=== PATIENT | female | born 1955 ===

== ENCOUNTER → 2017-02-03 | Outpatient (CLI) | payer OTHER ==
--- NOTE | 2017-02-03 07:32 | CT ---
EXAMINATION TYPE: CT abdomen pelvis wo con DATE OF EXAM: 02/03/2017 7:16 AM COMPARISON: NONE HISTORY: Pain and constipation TECHNIQUE: Helical acquisition through the abdomen and pelvis was obtained without intravenous contra st. The data was reformatted in axial, coronal and sagittal projections. CT DLP: 472 mGycm Automated exposure control for dose reduction was used. FINDINGS: Visualized portions of the lungs are clear. There is no pleural or pericardial fluid. The h eart is not enlarged. Within the abdomen, the liver, spleen and gallbladder appear normal. Both adrenal glands are normal. There is no evidence of hydronephrosis or nephrolithiasis. The pancreas is poorly visualized. There is moderate atheromatous calcification of the visualized arterial tree. The bladder is unremarkable. There is been a previous tubal ligation. Uterus appears unremarkable. There are surgical clips along the left iliac chain. I could not exclude a previous lymph node dissec tion. There are scattered diverticula in the sigmoid region without radiographic evidence of diverticulitis . The appendix is not visualized. Small bowel loops appear unremarkable. There is no free air and no free fluid. There is facet arthropathy and degenerative disc disease in t he lumbar spine. There is mild hypertrophic spondylosis in the dorsal line IMPRESSION: 1. STUDY LIMITED BY A POSSIBILITY OF FAT. 2. NO ACUTE INFLAMMATORY CHANGE. 3. POST SURGICAL CHANGE. 4. MILD DEGENERATIVE CHANGES WITHIN THE SPINE.
== END ==
LOC: RADCTMAIN 06:55
PROVIDERS: ATTEND Family Medicine
DX: R10.9 Unspecified abdominal pain (principal)
CPT/HCPCS: 74176

== ENCOUNTER → 2017-08-11 | Outpatient (CLI) | payer OTHER ==
[2017-08-11 13:08] LABS: Basophils # (A) 0.1 k/uL (0-0.2); Basophils % (A) 1 %; CH 33.7; Eosinophils # (A) 0.1 k/uL (0-0.7); Eosinophils % (A) 2 %; HCT 47.5 % (34.0-46.0); HDW 2.09; HGB 15.4 gm/dL (11.4-16.0); Luc # (Auto) 0.14; Luc % (Auto) 3; Lymphocytes # (A) 1.9 k/uL (1.0-4.8); Lymphocytes % (A) 36 %; MCH 33.4 pg (25.0-35.0); MCHC 32.5 g/dL (31.0-37.0); MCV 102.8 fL (80.0-100.0); Macrocytosis Slight; Mean Platelet Volume 8.1; Monocytes # (A) 0.4 k/uL (0-1.0); Monocytes % (A) 7 %; Neutrophils # (A) 2.8 k/uL (1.3-7.7); Neutrophils % (A) 52 %; RBC 4.63 m/uL (3.80-5.40); RDW 14.3 % (11.5-15.5); WBC 5.4 k/uL (3.8-10.6); WBC (Perox) 5.24
--- NOTE | 2017-08-11 13:11 | XR ---
EXAMINATION TYPE: XR chest 2V DATE OF EXAM: 08/11/2017 COMPARISON: NONE TECHNIQUE: PA and lateral views submitted. HISTORY: COPD FINDINGS: The lungs are clear and there is no pneumothorax, pleural effusion, or focal pneumonia. Hyperexpans ion noted. There is degenerative change of the spine. Biapical pleural thickening. Diffuse osteopenia . No overt failure. No focal pneumonia. Blunting of the costophrenic angles likely secondary to hyper expansion. IMPRESSION: 1. No acute process. Correlate for COPD.
[2017-08-11 13:19] LABS: Anion Gap 7 mmol/L; Blood Urea Nitrogen 11 mg/dL (7-17); Calcium 9.5 mg/dL (8.4-10.2); Carbon Dioxide 29 mmol/L (22-30); Chloride 103 mmol/L (98-107); Glucose 89 mg/dL (74-99); Non-African American GFR(MDRD) 55 (>60 ml/min/1.73 sqM); Potassium 4.7 mmol/L (3.5-5.1); Sodium 139 mmol/L (137-145)
[2017-08-11 13:21] LABS: INR 1.1 (<1.2); Partial Thromboplastin Time 26.1 sec (22.0-30.0); Prothrombin Time 11.5 sec (9.0-12.0)
== END | disposition home or self-care (01) ==
LOC: LABWHC1 12:15
PROVIDERS: ATTEND Orthopaedic Surgery
DX: J44.9 Chronic obstructive pulmonary disease, unspecified (principal); M79.643 Pain in unspecified hand; T84.039A Mechanical loosening of unspecified internal prosthetic joint, initial encounter; F17.200 Nicotine dependence, unspecified, uncomplicated; Z01.812 Encounter for preprocedural laboratory examination; Z51.81 Encounter for therapeutic drug level monitoring
CPT/HCPCS: 36415; 71020; 80048; 85025; 85610; 85730

== ENCOUNTER → 2018-06-12 | Outpatient (CLI) | payer OTHER ==
--- NOTE | 2018-06-14 13:17 | CT ---
EXAMINATION TYPE: CT abdomen pelvis w con DATE OF EXAM: 06/12/2018 COMPARISON: 02/03/2017 INDICATION: Upper Abdominal pain with nausea, vomiting and weight loss DLP: 358.1 mGycm, Automated exposure control for dose reduction was used. CONTRAST: 100 mL of Isovue 300. Study performed with Oral Contrast TECHNIQUE: Axial images were obtained from above the diaphragm to the pubic rami in the axial plane a t 5 mm thick sections. Reconstructed images are reviewed on the computer in the coronal plane. FINDINGS: Limited CT sections are obtained the lung bases. There is a 0.7 x 1.2 cm nodule on lung windows with in the right middle lobe adjacent to the major fissure and pleural margin anterior lateral right midd le lobe. Series 4 image 10.r 0.3 cm nodule may be adjacent. Follow-up is recommended.. CT ABDOMEN: Liver: There is a 1.2 cm hypodensity in the superior medial right lobe liver too small to classify as a cyst. This can be followed. There is an additional hypodensity in the posterior right lobe liver m idportion measuring 0.4 cm. At the posterior inferior right lobe liver there is a 0.6 cm hypodensity. These are too small to classify but may be hepatic cyst. Follow-up is recommended. These were not cl early identified 02/03/2017 although one was present. Spleen: Normal Pancreas: Normal Adrenal glands: The adrenal glands are normal. Gallbladder: Normal Kidneys: No masses are evident. No hydronephrosis is present. No cysts are present. Delayed images were obtained through the kidneys, which remain unremarkable. Aorta: Vascular calcification is within the aorta. Inferior vena cava: Normal. CT PELVIS: Loops of bowel within the abdomen and pelvis are normal. There are loops of bowel which are incom pletely distended or lack oral contrast limiting their evaluation. Appendix: Normal as visualized. Urinary bladder: Normal. Genitourinary structures: Uterus is unremarkable. Adnexal regions are clear. Osseous structures: No suspicious lytic or sclerotic lesions. IMPRESSIONS: 1. Interval development of a couple small nodules within the anterior peripheral right middle lobe a t the diaphragm. Consider CT chest for complete evaluation of the chest. 2. Hypodensities within the liver too small to classify. While one of these was present previously pr evious exam does not demonstrate all 3. Cyst could be considered although other etiologies remain wit hin the differential.
== END | disposition home or self-care (01) ==
LOC: RADCTMAIN 16:33
PROVIDERS: ATTEND Internal Medicine Gastroenterology
DX: J98.6 Disorders of diaphragm (principal); R10.13 Epigastric pain
CPT/HCPCS: 74177; Q9967

== ENCOUNTER → 2018-06-25 | Outpatient (CLI) | payer OTHER ==
--- NOTE | 2018-06-25 16:12 | CT ---
EXAMINATION TYPE: CT chest wo con DATE OF EXAM: 06/25/2018 COMPARISON: Chest x-ray 08/11/2017, CT abdomen pelvis 06/12/2018 HISTORY: Abnormal prior CT. Pulmonary nodule CT DLP: 115.5 mGycm. Automated Exposure Control for Dose Reduction was Utilized. TECHNIQUE: CT scan of the thorax is performed without IV contrast. FINDINGS: Lack of contrast could compromise sensitivity. There are coronary artery calcifications. LUNGS: The lungs are grossly clear, there is no concerning parenchymal mass or nodule identified. Th e nodule noted previously along the subpleural location in the right lower chest has resolved in the interval. There is a calcification present in the subpleural location on axial image 56 as on prior c ompatible with old granulomatous disease. There is a bandlike area of increased attenuation in the ri ght upper lobe anteriorly extending to the pleural surface which may represent some focal consolidati on, no definite air bronchograms. There is apical pleural scarring. Emphysematous changes are present within the lungs. There is no pleural effusion or pneumothorax seen. The tracheobronchial tree is p atent. MEDIASTINUM: Lack of IV contrast is noted to limit evaluation for mediastinal and especially hilar ad enopathy. There are no definitive greater than 1 cm hilar or mediastinal lymph nodes. No cardiomega ly or pericardial effusion is seen. OTHER: Posterior right 11th rib deformity could be postoperative and is stable. IMPRESSION: Findings were likely inflammatory, previously described nodule is no longer evident. Hubert elate for possible upper lobe pneumonia. Follow-up recommended. Noncontrast exam. Additional findings above.
== END | disposition home or self-care (01) ==
LOC: RADCTMAIN 15:02
PROVIDERS: ATTEND Family Medicine
DX: R91.1 Solitary pulmonary nodule (principal)
CPT/HCPCS: 71250

== ENCOUNTER 2018-07-01 08:48 | Day surgery (SDC) | payer OTHER ==
[2018-06-26 11:59] VITALS: BMI 19.0
[~2018-07-01 08:48] MED LIST: LACTATED RINGERS 1,000 ML IV SCH
[2018-07-01 09:37] VITALS: RESP 16; TEMP 97.6
[2018-07-01] MEDS ORDERED: LIDOCAINE 1% 20 ML VIAL (10MG/ML) FOR IV START INTRADERMA ONE (09:50)
[2018-07-01] MEDS ORDERED: LIDOCAINE 1% INJ 10MG/ML (20 ML MDV) ONE (10:05)
[2018-07-01] MEDS ORDERED: PROPOFOL 10 MG/ML 20 ML VIAL IV ONE (10:05)
--- NOTE | 2018-07-01 10:18 | P.PCN ---
Date of Procedure: 07/01/18 Procedure(s) Performed: BRIEF HISTORY: Patient is a 62-year-old, pleasant, white female, scheduled for an upper endoscopy as a part of evaluation of postprandial abdominal pain, early satiety and weight loss for the last few months duration.. PROCEDURE PERFORMED: Esophagogastroduodenoscopy with biopsy. PREOPERATIVE DIAGNOSIS: Epigastric pain, postprandial abdominal bloating and early satiety. IV sedation per anesthesia. PROCEDURE: After informed consent was obtained, the patient was brought into the endoscopy unit. IV sedation was administered by Anesthesia under continuous monitoring. Initially the Olympus GIF-140 video endoscope was inserted into the mouth. Esophagus intubated without any difficulty. It was gradually advanced into the stomach and duodenum and carefully examined. The bulb and the second part of the duodenum appeared normal. The abscesses were done from the duodenum to rule out celiac disease. The scope at this time was withdrawn to the stomach, adequately insufflated with air, and upon careful examination, mucosa of the antrum had patchy areas of erythema and biopsies were done from this area. The, body, cardia and the fundus appeared normal. The scope was then withdrawn into the esophagus. The GE junction was located at 39 cm from the incisors. The esophagus appeared normal. There were 2 superficial erosions at the GE junction consistent with LA grade B reflux esophagitis. The rest of esophagus appeared normal and the patient tolerated the procedure well. IMPRESSION: 1. Mild antral gastritis. 2. LA grade B reflux esophagitis. RECOMMENDATIONS: The findings of this examination were discussed with the patient as well as a family. She was advised to follow with the biopsy results. she will be seen in office in 2 weeks.
[2018-07-01 10:38] VITALS: BP 127/80; PULSE 67
== END 2018-07-01 11:12 | disposition home or self-care (01) ==
LOC: ORWHC2ENDO 08:48
PROVIDERS: ATTEND Internal Medicine Gastroenterology
DX: K21.0 Gastro-esophageal reflux disease with esophagitis (principal); K29.50 Unspecified chronic gastritis without bleeding; E78.5 Hyperlipidemia, unspecified; J44.9 Chronic obstructive pulmonary disease, unspecified; F17.210 Nicotine dependence, cigarettes, uncomplicated; M19.90 Unspecified osteoarthritis, unspecified site; F41.9 Anxiety disorder, unspecified; F32.9 Major depressive disorder, single episode, unspecified; Z79.891 Long term (current) use of opiate analgesic; Z79.899 Other long term (current) drug therapy
CPT/HCPCS: 88305; 43239; J2001; J2704

== ENCOUNTER → 2018-09-08 | Outpatient (CLI) | payer OTHER ==
--- NOTE | 2018-09-08 14:26 | XR ---
Right foot and right ankle HISTORY: Pain and bruising 3 views of the right foot and 3 views of the right ankle are submitted. No comparisons Osteoarthritic changes present at the metatarsophalangeal joint of the first digit, question prior os teotomy for hallux valgus deformity. Some distortion of the lateral aspect of the proximal interphala ngeal joint of the fifth digit may be posttraumatic or due to underlying arthropathy. There is no tyshawn dent fracture or dislocation of the foot or ankle. No significant soft tissue swelling present. IMPRESSION: Correlate for history of trauma, surgery. Foot MRI may be of benefit.
== END | disposition home or self-care (01) ==
LOC: RADXRMAIN 11:39
PROVIDERS: ATTEND Family Medicine
DX: M25.571 Pain in right ankle and joints of right foot (principal)

== ENCOUNTER 2019-01-10 00:34 | Emergency (ER) | payer OTHER ==
[2019-01-10] MEDS ORDERED: ONDANSETRON 4 MG/2 ML VIAL IVP STA (01:43)
[2019-01-10] MEDS ORDERED: SODIUM CHLORIDE 0.9% 1,000 ML IV STA (01:43)
--- NOTE | 2019-01-10 01:43 | ED ---
General Adult HPI - General Chief complaint: Nausea/Vomiting/Diarrhea Stated complaint: Flu Like Symptoms Time Seen by Provider: 01/10/19 01:16 Source: patient, EMS Mode of arrival: EMS Limitations: no limitations - History of Present Illness Initial comments: Dictation was produced using [employer] dictation software. please excuse any gr ammatical, word or spelling errors. Chief Complaint: 63-year-old female with past medical history of COPD, constipation presents with nausea vomiting diarrhea and generalized weakness. History of Present Illness: 63-year-old female with nausea vomiting diarrhea constipation. Patient states she has history of abdominal symptoms passed. She called ambulance because patient states that she felt so weak. Patient unable to keep anything down. Patient denies any abdominal pain except 3 diarrhea episodes. Patient denies any recent antibiotics or recent hospitalization. She does see a GI doctor. The ROS documented in this emergency department record has been reviewed and confirmed by me. Those systems with pertinent positive or negative responses have been documented in the HPI. All other systems are other negative and/or noncontributory. PHYSICAL EXAM: General Impression: Alert and oriented x3, not in acute distress HEENT: Normocephalic atraumatic, extra-ocular movements intact, pupils equal and reactive to light bilaterally, dry mucous membranes, decreased skin turgor Cardiovascular: Heart regular rate and rhythm, S1&S2 audible, no murmurs, rubs or gallops Chest: Lungs clear to auscultation bilaterally, no rhonchi, no wheeze, no rales Abdomen: Bowel sounds present, abdomen soft, non-tender, non-distended, no organomegaly Musculoskeletal: Pulses present and equal in all extremities, no peripheral edema Motor: Power 5/5 bilaterally, no focal deficits noted Neurological: CN II-XII grossly intact, no focal motor or sensory deficits noted Skin: Intact with no visualized rashes Psych: Normal affect and mood ED course: 63-year-old female presents with nausea, vomiting, diarrhea. Vital signs upon arrival are within acceptable limits. Patient is well-appearing at this time except she does appear to be mildly dehydrated. Laboratory evaluation obtained. CBC unremarkable. Metabolic panel is unremarkable. No elevated renal markers. Urinalysis is negative. No ketonuria. Patient given 1 L intravenous fluids. Patient ordered for a KUB x- ray showing nonobstructive bowel gas pattern. She given Zofran. Patient reevaluated states that she still unable to tolerate by mouth. She doesn't feel well at home. We will plan to have patient admitted to observation for intravenous fluids. - Related Data Home Medications Medication Instructions Recorded Confirmed Albuterol Inhaler [Ventolin Hfa 1 - 2 puff INHALATION Q4HR PRN 02/14/16 07/01/18 Inhaler] Atorvastatin [Lipitor] 10 mg PO HS 02/14/16 06/26/18 Diclofenac Sodium [Voltaren] 75 mg PO BID 02/14/16 06/26/18 Gabapentin 800 mg PO TID 02/14/16 07/01/18 HYDROcodone/APAP 5-325MG [[place] 1 tab PO Q8HR PRN 02/14/16 06/26/18 5-325] traZODone HCL [Desyrel] 100 mg PO HS 02/14/16 06/26/18 Dicyclomine [Bentyl] 10 mg PO TID 06/26/18 06/26/18 Vortioxetine Hydrobromide 20 mg PO DAILY 06/26/18 06/26/18 [Trintellix] Allergies Allergy/AdvReac Type Severity Reaction Status Date / Time No Known Allergies Allergy Verified 01/10/19 00:45 Review of Systems ROS Statement: Those systems with pertinent positive or pertinent negative responses have been documented in the HPI. ROS Other: All systems not noted in ROS Statement are negative. Past Medical History Past Medical History: COPD, Osteoarthritis (OA) Additional Past Medical History / Comment(s): OA in bilateral hands & osteoporosis in left hip History of Any Multi-Drug Resistant Organisms: None Reported Past Surgical History: Orthopedic Surgery Additional Past Surgical History / Comment(s): 4 sx on each foot; bilateral thumbs replaced; colonoscopy Past Anesthesia/Blood Transfusion Reactions: No Reported Reaction Past Psychological History: Anxiety, Depression Smoking Status: Former smoker Past Alcohol Use History: Rare Past Drug Use History: None Reported - Past Family History Mother Family Medical History: Diabetes Mellitus, Hypertension Additional Family Medical History / Comment(s): knee sx Father Family Medical History: Cancer Additional Family Medical History / Comment(s): CA: kidney, bone, "several cancers" General Exam Limitations: no limitations Course Vital Signs 01/10/19 01/10/19 00:38 04:58 Temperature 98.5 F O2 Sat by Pulse 96 Oximetry Medical Decision Making - Lab Data Result diagrams: 01/10/19 01:45 01/10/19 01:45 Lab Results 01/10/19 01/10/19 01/10/19 Range/Units 01:45 01:45 04:00 WBC 3.3 L (3.8-10.6) k/uL RBC 5.13 (3.80-5.40) m/uL Hgb 16.3 H (11.4-16.0) gm/dL Hct 48.9 H (34.0-46.0) % MCV 95.3 (80.0-100.0) fL MCH 31.9 (25.0-35.0) pg MCHC 33.4 (31.0-37.0) g/dL RDW 13.3 (11.5-15.5) % Plt Count 106 L (150-450) k/uL Neutrophils % 65 % Lymphocytes % 17 % Monocytes % 13 % Eosinophils % 1 % Basophils % 1 % Neutrophils # 2.2 (1.3-7.7) k/uL Lymphocytes # 0.6 L (1.0-4.8) k/uL Monocytes # 0.4 (0-1.0) k/uL Eosinophils # 0.0 (0-0.7) k/uL Basophils # 0.0 (0-0.2) k/uL Sodium 138 (137-145) mmol/L Potassium 3.7 (3.5-5.1) mmol/L Chloride 99 (98-107) mmol/L Carbon Dioxide 29 (22-30) mmol/L Anion Gap 10 mmol/L BUN 15 (7-17) mg/dL Creatinine 0.65 (0.52-1.04) mg/dL Est GFR (CKD-EPI)AfAm >90 (>60 ml/min/1.73 sqM) Est GFR (CKD-EPI)NonAf >90 (>60 ml/min/1.73 sqM) Glucose 107 H (74-99) mg/dL Calcium 9.5 (8.4-10.2) mg/dL Total Bilirubin 0.6 (0.2-1.3) mg/dL AST 78 H (14-36) U/L ALT 72 H (9-52) U/L Alkaline Phosphatase 68 (38-126) U/L Total Protein 7.0 (6.3-8.2) g/dL Albumin 4.2 (3.5-5.0) g/dL Lipase 136 (23-300) U/L Urine Color Yellow Urine Appearance Clear (Clear) Urine pH 6.0 (5.0-8.0) Ur Specific [place] 1.010 (1.001-1.035) Urine Protein Trace H (Negative) Urine Glucose (UA) Negative (Negative) Urine Ketones Negative (Negative) Urine Blood Negative (Negative) Urine Nitrite Negative (Negative) Urine Bilirubin Negative (Negative) Urine Urobilinogen <2.0 (<2.0) mg/dL Ur Leukocyte Esterase Negative (Negative) Disposition Clinical Impression: Dehydration Disposition: ADMITTED IP TO THIS [facility] Condition: Good Referrals: Ad Salinas DO [Primary Care Provider] - 1-2 days Decision Time: 05:06
[2019-01-10 03:04] LABS: ALT 72 U/L (9-52); AST 78 U/L (14-36); Albumin 4.2 g/dL (3.5-5.0); Alkaline Phosphatase 68 U/L (38-126); Anion Gap 10 mmol/L; Blood Urea Nitrogen 15 mg/dL (7-17); Calcium 9.5 mg/dL (8.4-10.2); Carbon Dioxide 29 mmol/L (22-30); Chloride 99 mmol/L (98-107); Glucose 107 mg/dL (74-99); Lipase 136 U/L (23-300); Potassium 3.7 mmol/L (3.5-5.1); Sodium 138 mmol/L (137-145); Total Bilirubin 0.6 mg/dL (0.2-1.3)
[2019-01-10 03:05] LABS: Basophils % (A) 1 %; Eosinophils % (A) 1 %; HCT 48.9 % (34.0-46.0); HGB 16.3 gm/dL (11.4-16.0); Lymphocytes # (A) 0.6 k/uL (1.0-4.8); Lymphocytes % (A) 17 %; MCH 31.9 pg (25.0-35.0); MCHC 33.4 g/dL (31.0-37.0); MCV 95.3 fL (80.0-100.0); Mean Platelet Volume 7.1; Monocytes # (A) 0.4 k/uL (0-1.0); Monocytes % (A) 13 %; Neutrophils # (A) 2.2 k/uL (1.3-7.7); Neutrophils % (A) 65 %; Platelet Count 106 k/uL (150-450); RBC 5.13 m/uL (3.80-5.40); RDW 13.3 % (11.5-15.5); WBC 3.3 k/uL (3.8-10.6)
--- NOTE | 2019-01-10 03:14 | XR ---
EXAM: XR Abdomen, 1 View CLINICAL HISTORY: pain TECHNIQUE: Frontal supine view of the abdomen/pelvis. COMPARISON: CT abdomen and pelvis from 06/12/18 FINDINGS: Gastrointestinal tract: Nonspecific bowel gas pattern. No dilation. Bones/joints: Suspect osteopenia. Soft tissues: Surgical clips in bilateral pelvis. IMPRESSION: Nonspecific bowel gas pattern
[2019-01-10 04:29] LABS: Appearance,Urine Clear (Clear); Bilirubin,Urine Negative (Negative); Blood,Urine Negative (Negative); Color,Urine Yellow; Glucose,Urine (UA) Negative (Negative); Ketones,Urine Negative (Negative); Leukocyte Esterase,Urine Negative (Negative); Nitrite,Urine Negative (Negative); Protein,Urine Trace (Negative); Urobilinogen,Urine <2.0 mg/dL (<2.0)
[2019-01-10] MEDS ORDERED: NALOXONE 0.4 MG/ML 1 ML VIAL IV PRN (04:41)
[2019-01-10] MEDS ORDERED: SODIUM CHLORIDE 0.9% 1,000 ML IV SCH (05:15)
[2019-01-10 05:18] VITALS: BP 142/86; PULSE 84; RESP 18; TEMP 98.2
--- NOTE | 2019-01-10 05:34 | ED ---
Medical Decision Making - Medical Decision Making Patient expressed desire to be discharge. She states she feels well. She's been tolerating by mouth at bedside. She had no episodes of diarrhea today. Believe this is reasonable disposition. She does have established primary care. Still to follow up PCP. - Lab Data Result diagrams: 01/10/19 01:45 01/10/19 01:45 Lab Results 01/10/19 01/10/19 01/10/19 Range/Units 01:45 01:45 04:00 WBC 3.3 L (3.8-10.6) k/uL RBC 5.13 (3.80-5.40) m/uL Hgb 16.3 H (11.4-16.0) gm/dL Hct 48.9 H (34.0-46.0) % MCV 95.3 (80.0-100.0) fL MCH 31.9 (25.0-35.0) pg MCHC 33.4 (31.0-37.0) g/dL RDW 13.3 (11.5-15.5) % Plt Count 106 L (150-450) k/uL Neutrophils % 65 % Lymphocytes % 17 % Monocytes % 13 % Eosinophils % 1 % Basophils % 1 % Neutrophils # 2.2 (1.3-7.7) k/uL Lymphocytes # 0.6 L (1.0-4.8) k/uL Monocytes # 0.4 (0-1.0) k/uL Eosinophils # 0.0 (0-0.7) k/uL Basophils # 0.0 (0-0.2) k/uL Sodium 138 (137-145) mmol/L Potassium 3.7 (3.5-5.1) mmol/L Chloride 99 (98-107) mmol/L Carbon Dioxide 29 (22-30) mmol/L Anion Gap 10 mmol/L BUN 15 (7-17) mg/dL Creatinine 0.65 (0.52-1.04) mg/dL Est GFR (CKD-EPI)AfAm >90 (>60 ml/min/1.73 sqM) Est GFR (CKD-EPI)NonAf >90 (>60 ml/min/1.73 sqM) Glucose 107 H (74-99) mg/dL Calcium 9.5 (8.4-10.2) mg/dL Total Bilirubin 0.6 (0.2-1.3) mg/dL AST 78 H (14-36) U/L ALT 72 H (9-52) U/L Alkaline Phosphatase 68 (38-126) U/L Total Protein 7.0 (6.3-8.2) g/dL Albumin 4.2 (3.5-5.0) g/dL Lipase 136 (23-300) U/L Urine Color Yellow Urine Appearance Clear (Clear) Urine pH 6.0 (5.0-8.0) Ur Specific [place] 1.010 (1.001-1.035) Urine Protein Trace H (Negative) Urine Glucose (UA) Negative (Negative) Urine Ketones Negative (Negative) Urine Blood Negative (Negative) Urine Nitrite Negative (Negative) Urine Bilirubin Negative (Negative) Urine Urobilinogen <2.0 (<2.0) mg/dL Ur Leukocyte Esterase Negative (Negative) Disposition Clinical Impression: Dehydration, Vomiting Disposition: HOME SELF-CARE Condition: Good Instructions (If sedation given, give patient instructions): Acute Diarrhea (ED), Acute Nausea and Vomiting (ED) Is patient prescribed a controlled substance at d/c from ED?: No Referrals: Ad Salinas DO [Primary Care Provider] - 1-2 days Time of Disposition: 05:34
== END 2019-01-10 05:40 | disposition home or self-care (01) ==
LOC: EC 00:34
DX: E86.0 Dehydration (principal); R11.2 Nausea with vomiting, unspecified; R53.1 Weakness; J44.9 Chronic obstructive pulmonary disease, unspecified; M19.042 Primary osteoarthritis, left hand; M19.041 Primary osteoarthritis, right hand; F41.9 Anxiety disorder, unspecified; F32.9 Major depressive disorder, single episode, unspecified; Z96.89 Presence of other specified functional implants; Z87.891 Personal history of nicotine dependence; Z79.1 Long term (current) use of non-steroidal anti-inflammatories (NSAID); Z79.899 Other long term (current) drug therapy
CPT/HCPCS: 36415; 80053; 83690; 85025; 81003; 74018; 99284; 96374; 96361; J2405

== ENCOUNTER → 2019-09-29 | Outpatient (CLI) | payer OTHER ==
--- NOTE | 2019-10-01 11:44 | MM ---
Reason for exam: screening (asymptomatic). Last mammogram was performed 3 years and 1 month ago. History: Patient is postmenopausal. Family history of breast cancer in maternal aunt at age 70. Took hormonal contraceptives for 10 years. Physical Findings: A clinical breast exam by your physician is recommended on an annual basis and results should be correlated with mammographic findings. MG Screening Mammo w CAD Bilateral CC and MLO view(s) were taken. Prior study comparison: August 14, 2016, bilateral MG screening mammo w CAD. May 21, 2010, mammogram, performed at [facility]. The breast tissue is heterogeneously dense. This may lower the sensitivity of mammography. There is no discrete abnormality. No significant changes when compared with prior studies. ASSESSMENT: Negative, BI-RAD 1 RECOMMENDATION: Routine screening mammogram of both breasts in 1 year.
== END | disposition home or self-care (01) ==
LOC: RADMAMWWP 14:13
PROVIDERS: ATTEND Family Medicine
DX: Z12.31 Encounter for screening mammogram for malignant neoplasm of breast (principal)
CPT/HCPCS: 77067

== ENCOUNTER → 2021-01-23 | Outpatient (CLI) | payer OTHER ==
--- NOTE | 2021-01-23 13:52 | CTL ---
EXAMINATION TYPE: CT Low Dose Lung DATE OF EXAM ORDERED: 01/23/2021 HISTORY: Long-term tobacco use. Lung cancer screening CT DLP: 48.[address] CTDI: 1.30 mGy Automated exposure control for dose reduction was used. SCREENING VISIT: Initial study COMPARISON: Chest CT June 25, 2018 TECHNIQUE: Low dose computed tomography scan was performed through the chest at 1 mm thick sections a nd reconstructed images in the coronal plane at [address] DIAGNOSTIC QUALITY: Satisfactory FINDINGS: LUNG NODULES: Present, detailed below: Roughly 6 mm basilar right sided calcified nodule or granuloma axial image 273 anterolaterally. LUNGS: COPD: Severity: Mild to moderate Fibrosis: Severity: Moderate biapical and mild to moderate bibasilar Lymph nodes: No greater than 1 cm calcified. Subcentimeter calcified right hilar lymph nodes. Other findings: None RIGHT PLEURAL SPACE: Effusion: None Calcification: None Thickening: None Pneumothorax: None LEFT PLEURAL SPACE: Effusion: None Calcification: None Thickening: None Pneumothorax: None HEART: Heart Size: Normal Coronary calcification: None Pericardial effusion: None OTHER FINDINGS: Upper abdomen: None Bony thorax: Slight scoliotic curvature. Partial right lateral rib resection again seen. Supraclavicular region: None. Other: None. IMPRESSION: Mild to moderate emphysematous pulmonary fibrotic changes. No suspicious new Greater than 5 mm noncalcified pulmonary nodules. CT LUNG RAD AND CT CHEST RECOMMENDATION: Lung-Rad 2 Benign Appearance or Behavior: Continue annual sc reening with LDCT in 12 months. S Modifier (other clinically significant findings): None
== END | disposition home or self-care (01) ==
LOC: RADCTMAIN 12:53
PROVIDERS: ATTEND Internal Medicine Critical Care Medicine
DX: Z12.2 Encounter for screening for malignant neoplasm of respiratory organs (principal); J43.9 Emphysema, unspecified; Z72.0 Tobacco use
CPT/HCPCS: 71271

== ENCOUNTER 2022-05-29 17:44 | Inpatient (IN) | payer MEDICARE, OTHER ==
[2022-05-29] MEDS ORDERED: IPRATROPIUM-ALBUTEROL 3 ML NEB INHALATION STA ×2 (18:18→18:19)
[2022-05-29] MEDS ORDERED: MAGNESIUM SULFATE-D5W PMX 1 GM in DEXTROSE/WATER 1 100ML.BAG IVPB STA (18:18)
[2022-05-29] MEDS ORDERED: SODIUM CHLORIDE 0.9% 500 ML 500 ML IV STA (18:18)
[2022-05-29] MEDS ORDERED: methylPREDNISolone SOD SUCCI 125 MG/2 ML VIAL IV STA (18:18)
[2022-05-29 19:08] LABS: INR 1.1 (<1.2); Partial Thromboplastin Time 23.1 sec (22.0-30.0); Prothrombin Time 11.5 sec (9.0-12.0)
[2022-05-29 19:10] LABS: ALT 36 U/L (4-34); AST 43 U/L (14-36); African American GFR (CKD) >90 (>60 ml/min/1.73 sqM); Albumin 4.1 g/dL (3.5-5.0); Alkaline Phosphatase 58 U/L (38-126); Anion Gap 0 mmol/L; Blood Urea Nitrogen 16 mg/dL (7-17); Carbon Dioxide 39 mmol/L (22-30); Chloride 96 mmol/L (98-107); Glucose 106 mg/dL (74-99); Magnesium 1.9 mg/dL (1.6-2.3); Non-African American GFR(CKD) >90 (>60 ml/min/1.73 sqM); Sodium 135 mmol/L (137-145); Total Bilirubin 0.6 mg/dL (0.2-1.3); Total Protein 6.4 g/dL (6.3-8.2)
[2022-05-29 19:22] LABS: Basophils % (A) 1 %; Eosinophils % (A) 0 %; HCT 39.4 % (34.0-46.0); Lymphocytes # (A) 0.9 k/uL (1.0-4.8); Lymphocytes % (A) 19 %; MCH 32.7 pg (25.0-35.0); MCV 99.2 fL (80.0-100.0); Mean Platelet Volume 8.7; Monocytes # (A) 0.3 k/uL (0-1.0); Monocytes % (A) 6 %; Neutrophils # (A) 3.3 k/uL (1.3-7.7); Neutrophils % (A) 73 %; Platelet Count 123 k/uL (150-450); RBC 3.98 m/uL (3.80-5.40); RDW 12.1 % (11.5-15.5); WBC 4.5 k/uL (3.8-10.6)
--- NOTE | 2022-05-29 19:32 | XR ---
EXAMINATION TYPE: XR chest 1V portable DATE OF EXAM: 05/29/2022 7:15 PM COMPARISON: Chest radiographs from 08/11/2017 TECHNIQUE: XR chest 1V portable Frontal view of the chest. CLINICAL INDICATION:Female, 66 years old with history of difficulty breathing; FINDINGS: Lungs/Pleura: There is flattening of the diaphragm with increased lucency of the lungs. No evidence o f pneumothorax, pleural effusion or focal consolidation. Pulmonary vascularity: Unremarkable. Heart/mediastinum: Cardiomediastinal silhouette is unremarkable. Musculoskeletal: No acute osseous pathology. IMPRESSION: 1. No acute cardiopulmonary disease process. 2. COPD changes.
[2022-05-29] MEDS ORDERED: NALOXONE 0.4 MG/ML 1 ML VIAL IV PRN (20:45)
[2022-05-29] MEDS ORDERED: ONDANSETRON 4 MG/2 ML VIAL IVP PRN (20:45)
[2022-05-29] MEDS ORDERED: DICYCLOMINE 10 MG CAP PO PRN (20:47)
[2022-05-29] MEDS ORDERED: ALBUTEROL HFA INHALER INHALATION PRN (20:47)
--- NOTE | 2022-05-29 20:54 | ED ---
General Adult HPI - General Chief complaint: Shortness of Breath Stated complaint: HEATH Time Seen by Provider: 05/29/22 18:12 Source: EMS, RN notes reviewed, old records reviewed Mode of arrival: EMS Limitations: no limitations - History of Present Illness Initial comments: Patient is a 66-year-old female with past medical history remarkable for end-stage COPD, who presents emergency Department complaining of worsening shortness of breath. Has been getting worse over the last month or so. This is occurred since her . Denies cough. Denies chest pain. Denies abdominal pain, nausea, vomiting. Home therapy has been effective. Is on 2 L normally at home. Currently is on 4 L and saturating well. No fevers, chills, sick contacts. Denies any productive cough. Denies nausea, vomiting, diarrhea. No other acute complaints at this time.. - Related Data Home Medications Medication Instructions Recorded Confirmed Albuterol Inhaler [Ventolin Hfa 2 puff INHALATION RT-Q4H PRN 02/14/16 05/29/22 Inhaler] Atorvastatin [Lipitor] 10 mg PO HS 02/14/16 05/29/22 Diclofenac Sodium [Voltaren] 75 mg PO BID-W/MEALS 02/14/16 05/29/22 Gabapentin 800 mg PO TID PRN 02/14/16 05/29/22 traZODone HCL [Desyrel] 100 mg PO HS PRN 02/14/16 05/29/22 Dicyclomine [Bentyl] 10 mg PO QID PRN 06/26/18 05/29/22 Vortioxetine Hydrobromide 20 mg PO DAILY 06/26/18 05/29/22 [Trintellix] Budesonide-Formot 160-4.5 Mcg 2 puff INHALATION RT-BID 05/29/22 05/29/22 [Symbicort 160-4.5 Mcg Inhaler] Docusate [Colace] 300 mg PO DAILY 05/29/22 05/29/22 Ipratropium-Albuterol Nebulize 3 ml INHALATION RT-QID 05/29/22 05/29/22 [Duoneb 0.5 mg-3 mg/3 ml Soln] Lifitegrast [Xiidra] 1 drop BOTH EYES Q12H 07/27/22 07/27/22 prednisoLONE ACETATE 1% OPHTH 1 drops BOTH EYES BID 05/29/22 05/29/22 [Pred Forte 1%] Allergies Allergy/AdvReac Type Severity Reaction Status Date / Time No Known Allergies Allergy Verified 05/29/22 20:32 Review of Systems ROS Statement: Those systems with pertinent positive or pertinent negative responses have been documented in the HPI. Review of Systems: CONST: Denies fever EYES: Denies blurry vision ENT: Denies nasal congestion C/V: Denies Chest pain RESP: Endorses shortness of breath GI: Denies abdominal pain : Denies dysuria SKIN: Denies rash. MSK: Denies joint pain. NEURO: Denies headache ROS Other: All systems not noted in ROS Statement are negative. Past Medical History Past Medical History: COPD, Osteoarthritis (OA) Additional Past Medical History / Comment(s): OA in bilateral hands & osteoporosis in left hip History of Any Multi-Drug Resistant Organisms: None Reported Past Surgical History: Orthopedic Surgery Additional Past Surgical History / Comment(s): 4 sx on each foot; bilateral thumbs replaced; colonoscopy Past Anesthesia/Blood Transfusion Reactions: No Reported Reaction Past Psychological History: Anxiety, Depression Past Alcohol Use History: Rare Past Drug Use History: None Reported - Past Family History Mother Family Medical History: Diabetes Mellitus, Hypertension Additional Family Medical History / Comment(s): knee sx Father Family Medical History: Cancer Additional Family Medical History / Comment(s): CA: kidney, bone, "several cancers" General Exam - General Exam Comments Initial Comments: General: Has increased work of breathing. HEAD: Normal with no signs of head trauma. EYES: PERRLA, EOMI, conjunctiva normal, no discharge. ENT: Hearing grossly intact, normal oropharynx. RESPIRATORY: Please breath sounds bilaterally with end expiratory wheezing. Increased work of breathing. No hypoxia on increased approximation at 4 L. C/V: Regular rate and rhythm. S1 and S2 auscultated, no edema, peripheral pulses 2+ and intact throughout ABD: Abd is soft, nontender, nondistended EXT: Normal range of motion, no obvious deformity SKIN: No rashes or lesions observed on exposed skin. NEURO: Alert and oriented 4. Limitations: no limitations Course Vital Signs 05/29/22 05/29/22 05/29/22 17:58 18:01 18:30 Temperature 98.2 F Pulse Rate 83 Respiratory 26 H 22 Rate Blood Pressure 133/73 O2 Sat by Pulse 99 Oximetry Fraction of 50 Inspired Oxygen (FIO2) 05/29/22 05/29/22 05/29/22 18:34 18:44 19:05 Temperature Pulse Rate 88 82 85 Respiratory 13 Rate Blood Pressure O2 Sat by Pulse Oximetry Fraction of Inspired Oxygen (FIO2) 05/29/22 05/29/22 19:18 21:08 Temperature Pulse Rate 85 78 Respiratory 18 Rate Blood Pressure 156/84 O2 Sat by Pulse 100 Oximetry Fraction of 40 Inspired Oxygen (FIO2) Medical Decision Making - Medical Decision Making Based on the patient's presentation and physical exam, I suspect this is an acute COPD exacerbation, worsening of her chronic condition. We will obtain cardiopulmonary workup including screening EKG, chest x-ray and lavatory studi es. We'll start the patient on IV steroids and multiple breathing treatments. Patient was in agreement this plan. I did recommend BiPAP as the patient was having increased work of breathing with shallow respirations. I do believe she may benefit from it. I will order when necessary. I notified respiratory therapy. Vital signs are remarkable only for the increased work of breathing at this time, as well as requirement normal nasal cannula oxygen for oxygenation. EKG shows no signs of acute ischemia. Laboratory studies are remarkable for an elevated carbon dioxide of 39 above her baseline. Patient is Covid and flu negative. The remainder of the labs are relatively unremarkable. Chest x-ray shows COPD changes with no acute cardio primary process. On reevaluation, patient is feeling improved on BiPAP. Vital signs are improved. Work of breathing is improved. I discussed the findings with the patient. Would like to admit her for her COPD exacerbation. She was in agreement this plan. Pulmonology was consulted. I spoke with the admitting physician, Dr. Salinas who accepted the patient. Patient was admitted in stable condition at this time with when necessary BiPAP. Breathing treatments and steroids will be continued. - Lab Data Result diagrams: 05/29/22 18:28 05/29/22 18:28 Lab Results 05/29/22 05/29/22 05/29/22 Range/Units 18:28 18:28 18:28 WBC 4.5 (3.8-10.6) k/uL RBC 3.98 (3.80-5.40) m/uL Hgb 13.0 (11.4-16.0) gm/dL Hct 39.4 (34.0-46.0) % MCV 99.2 (80.0-100.0) fL MCH 32.7 (25.0-35.0) pg MCHC 33.0 (31.0-37.0) g/dL RDW 12.1 (11.5-15.5) % Plt Count 123 L (150-450) k/uL MPV 8.7 Neutrophils % 73 % Lymphocytes % 19 % Monocytes % 6 % Eosinophils % 0 % Basophils % 1 % Neutrophils # 3.3 (1.3-7.7) k/uL Lymphocytes # 0.9 L (1.0-4.8) k/uL Monocytes # 0.3 (0-1.0) k/uL Eosinophils # 0.0 (0-0.7) k/uL Basophils # 0.0 (0-0.2) k/uL PT 11.5 (9.0-12.0) sec INR 1.1 (<1.2) APTT 23.1 (22.0-30.0) sec Sodium 135 L (137-145) mmol/L Potassium 4.0 (3.5-5.1) mmol/L Chloride 96 L (98-107) mmol/L Carbon Dioxide 39 H (22-30) mmol/L Anion Gap 0 mmol/L BUN 16 (7-17) mg/dL Creatinine 0.47 L (0.52-1.04) mg/dL Est GFR (CKD-EPI)AfAm >90 (>60 ml/min/1.73 sqM) Est GFR (CKD-EPI)NonAf >90 (>60 ml/min/1.73 sqM) Glucose 106 H (74-99) mg/dL Calcium 9.0 (8.4-10.2) mg/dL Magnesium 1.9 (1.6-2.3) mg/dL Total Bilirubin 0.6 (0.2-1.3) mg/dL AST 43 H (14-36) U/L ALT 36 H (4-34) U/L Alkaline Phosphatase 58 (38-126) U/L Total Protein 6.4 (6.3-8.2) g/dL Albumin 4.1 (3.5-5.0) g/dL Coronavirus (PCR) (Not Detectd) Influenza Type A RNA (Not Detectd) Influenza Type B (PCR) (Not Detectd) 05/29/22 05/29/22 Range/Units 18:28 18:28 WBC (3.8-10.6) k/uL RBC (3.80-5.40) m/uL Hgb (11.4-16.0) gm/dL Hct (34.0-46.0) % MCV (80.0-100.0) fL MCH (25.0-35.0) pg MCHC (31.0-37.0) g/dL RDW (11.5-15.5) % Plt Count (150-450) k/uL MPV Neutrophils % % Lymphocytes % % Monocytes % % Eosinophils % % Basophils % % Neutrophils # (1.3-7.7) k/uL Lymphocytes # (1.0-4.8) k/uL Monocytes # (0-1.0) k/uL Eosinophils # (0-0.7) k/uL Basophils # (0-0.2) k/uL PT (9.0-12.0) sec INR (<1.2) APTT (22.0-30.0) sec Sodium (137-145) mmol/L Potassium (3.5-5.1) mmol/L Chloride (98-107) mmol/L Carbon Dioxide (22-30) mmol/L Anion Gap mmol/L BUN (7-17) mg/dL Creatinine (0.52-1.04) mg/dL Est GFR (CKD-EPI)AfAm (>60 ml/min/1.73 sqM) Est GFR (CKD-EPI)NonAf (>60 ml/min/1.73 sqM) Glucose (74-99) mg/dL Calcium (8.4-10.2) mg/dL Magnesium (1.6-2.3) mg/dL Total Bilirubin (0.2-1.3) mg/dL AST (14-36) U/L ALT (4-34) U/L Alkaline Phosphatase (38-126) U/L Total Protein (6.3-8.2) g/dL Albumin (3.5-5.0) g/dL Coronavirus (PCR) Not Detected (Not Detectd) Influenza Type A RNA Not Detected (Not Detectd) Influenza Type B (PCR) Not Detected (Not Detectd) - EKG Data -: EKG Interpreted by Me EKG Comments: 12-lead Electrocardiogram Interpretation Note EKG was reviewed and interpreted by myself. 12-lead ECG performed at 18:29 is interpreted by me as revealing normal sinus rhythm at a rate of 80 beats per minute. [place] is normal. DC interval is 137 ms, QRS duration is 86 ms, QTc is 412 ms.. There were no ST or T wave abnormalities to suggest myocardial ischemia or injury. R wave progression across the precordium was satisfactory. By my interpretation this EKG is non-diagnostic for acute ischemia. There is respiratory variation causing some baseline artifact in some leads. Disposition Clinical Impression: COPD exacerbation Disposition: ADMITTED IP TO THIS HOSP Condition: Stable Time of Disposition: 20:00
[2022-05-29] MEDS: IPRATROPIUM-ALBUTEROL 3 ML NEB INHALATION SCH (21:08)
[2022-05-29] MEDS: traZODone HCL 100 MG TAB PO PRN (21:41)
[2022-05-29] MEDS: ATORVASTATIN 10 MG TAB PO SCH (21:41)
[2022-05-29] MEDS: HEPARIN SODIUM,PORCINE/PF 5,000 UNIT/0.5 ML SYRINGE SQ SCH (21:41)
[2022-05-29] MEDS: GABAPENTIN 400 MG CAP PO PRN (21:41)
[2022-05-29] MEDS: NON FORMULARY DRUG (Lifitegrast [Xiidra] 1 EACH Droperette) BOTH EYES SCH (21:42)
[2022-05-29] MEDS: prednisoLONE ACETATE 1% OPHTH DROPS 5 ML BTL BOTH EYES SCH (21:42)
[2022-05-29] MEDS: methylPREDNISolone SOD SUCCI 40 MG/ML 1 ML VIAL IV SCH (23:16)
[2022-05-30] MEDS: IPRATROPIUM-ALBUTEROL 3 ML NEB INHALATION SCH ×6 (01:03→19:57)
[2022-05-30 05:51] LABS: Basophils % (A) 0 %; Eosinophils % (A) 1 %; HCT 42.4 % (34.0-46.0); HGB 13.6 gm/dL (11.4-16.0); Lymphocytes # (A) 0.5 k/uL (1.0-4.8); Lymphocytes % (A) 22 %; MCH 32.7 pg (25.0-35.0); MCV 102.2 fL (80.0-100.0); Macrocytosis Slight; Mean Platelet Volume 8.4; Monocytes # (A) 0.1 k/uL (0-1.0); Monocytes % (A) 2 %; Neutrophils # (A) 1.7 k/uL (1.3-7.7); Neutrophils % (A) 75 %; Platelet Count 136 k/uL (150-450); RBC 4.15 m/uL (3.80-5.40); RDW 12.6 % (11.5-15.5); WBC 2.2 k/uL (3.8-10.6)
[2022-05-30 06:04] LABS: African American GFR (CKD) >90 (>60 ml/min/1.73 sqM); Anion Gap 3 mmol/L; Blood Urea Nitrogen 12 mg/dL (7-17); Calcium 9.2 mg/dL (8.4-10.2); Carbon Dioxide 39 mmol/L (22-30); Chloride 96 mmol/L (98-107); Glucose 130 mg/dL (74-99); Non-African American GFR(CKD) >90 (>60 ml/min/1.73 sqM); Potassium 4.5 mmol/L (3.5-5.1); Sodium 138 mmol/L (137-145)
[2022-05-30] MEDS: SYMBICORT 160-4.5 MCG INHALER INHALATION SCH ×2 (07:29→19:57)
[2022-05-30] MEDS: methylPREDNISolone SOD SUCCI 40 MG/ML 1 ML VIAL IV SCH ×3 (08:31→23:27)
[2022-05-30] MEDS: HEPARIN SODIUM,PORCINE/PF 5,000 UNIT/0.5 ML SYRINGE SQ SCH ×2 (08:32→20:38)
[2022-05-30] MEDS: GABAPENTIN 400 MG CAP PO PRN (08:32)
[2022-05-30] MEDS: VORTIOXETINE HYDROBROMIDE 20 MG TABLET PO SCH (08:33)
[2022-05-30] MEDS: DOCUSATE 100 MG CAP PO SCH ×2 (08:33→08:37)
[2022-05-30] MEDS: prednisoLONE ACETATE 1% OPHTH DROPS 5 ML BTL BOTH EYES SCH ×2 (08:35→20:38)
[2022-05-30] MEDS: NON FORMULARY DRUG (Lifitegrast [Xiidra] 1 EACH Droperette) BOTH EYES SCH ×2 (08:36→20:38)
--- NOTE | 2022-05-30 12:10 | P.CNPUL ---
History of Present Illness Consult date: 05/30/22 Requesting physician: Ad Salinas Reason for consult: dyspnea, COPD Chief complaint: Shortness of breath History of present illness: This is a very pleasant 66-year-old female patient who follows with Dr. Salinas as her primary care provider. She has a history of hyperlipidemia, depression, chronic and ongoing tobacco dependence, chronic hypoxemic respiratory failure maintained on oxygen at 2 L/m per nasal cannula. She has severe COPD with an FEV1 percent of predicted. She been maintained on Symbicort, DuoNeb inhalations and albuterol HFA in the outpatient setting. She presented here to the emergency room yesterday with worsening shortness of breath, cough and congestion. Chest tightness and wheezing. Chest x-ray shows no acute pulmonary process. Evidence of COPD. White count 2.2. Hemoglobin 13.6. Platelets 136. Sodium 138. Potassium 4.5. BUN 12. Creatinine 0.60. Bicarb 39. Currently by PCR not detected. Influenza a and B screen negative. She's been initiated on Symbicort, DuoNeb inhalations, IV Solu-Medrol. She is seen today in consultation on the regular medical floor. She did require BiPAP support 12/5- 40% FiO2. Currently on 3 L nasal cannula. Awake and alert in no acute distress. She remains dyspneic with conversation. Dyspneic with exertion. Review of Systems REVIEW OF SYSTEMS: CONSTITUTIONAL: Denies any recent significant weight loss or weight gain. EYES: Denies change in vision. EARS, NOSE, MOUTH, THROAT: Denies headaches, denies sore throat. CARDIOVASCULAR: Denies chest pain, palpitations or syncopal episodes. RESPIRATORY: As needed for shortness of breath, cough, congestion no hemoptysis. GASTROINTESTINAL: Denies change in appetite, denies abdominal pain GENITOURINARY: Denies hematuria, denies infections. MUSKULOSKELETAL: Denies pain, denies swelling. INTEGUMENTARY: Denies rash, denies eczema. NEUROLOGICAL: Denies recent memory loss, no recent seizure activity. PSYCHIATRIC: Denies anxiety, denies depression. HEMATOLOGIC/LYMPHATIC: Denies anemia, denies enlarged lymph nodes. Past Medical History Past Medical History: COPD, Osteoarthritis (OA) Additional Past Medical History / Comment(s): OA in bilateral hands & osteoporosis in left hip History of Any Multi-Drug Resistant Organisms: None Reported Past Surgical History: Orthopedic Surgery Additional Past Surgical History / Comment(s): 4 sx on each foot; bilateral thumbs replaced; colonoscopy Past Anesthesia/Blood Transfusion Reactions: No Reported Reaction Past Psychological History: Anxiety, Depression Past Alcohol Use History: Rare Past Drug Use History: None Reported - Past Family History Mother Family Medical History: Diabetes Mellitus, Hypertension Additional Family Medical History / Comment(s): knee sx Father Family Medical History: Cancer Additional Family Medical History / Comment(s): CA: kidney, bone, "several cancers" Medications and Allergies Home Medications Medication Instructions Recorded Confirmed Type Albuterol Inhaler [Ventolin Hfa 2 puff INHALATION RT-Q4H PRN 02/14/16 05/29/22 History Inhaler] Atorvastatin [Lipitor] 10 mg PO HS 02/14/16 05/29/22 History Diclofenac Sodium [Voltaren] 75 mg PO BID-W/MEALS 02/14/16 05/29/22 History Gabapentin 800 mg PO TID PRN 02/14/16 05/29/22 History traZODone HCL [Desyrel] 100 mg PO HS PRN 02/14/16 05/29/22 History Dicyclomine [Bentyl] 10 mg PO QID PRN 06/26/18 05/29/22 History Vortioxetine Hydrobromide 20 mg PO DAILY 06/26/18 05/29/22 History [Trintellix] Budesonide-Formot 160-4.5 Mcg 2 puff INHALATION RT-BID 05/29/22 05/29/22 History [Symbicort 160-4.5 Mcg Inhaler] Docusate [Colace] 300 mg PO DAILY 05/29/22 05/29/22 History Ipratropium-Albuterol Nebulize 3 ml INHALATION RT-QID 05/29/22 05/29/22 History [Duoneb 0.5 mg-3 mg/3 ml Soln] Lifitegrast [Xiidra] 1 drop BOTH EYES Q12H 05/29/22 05/29/22 History prednisoLONE ACETATE 1% OPHTH 1 drops BOTH EYES BID 05/29/22 05/29/22 History [Pred Forte 1%] Allergies Allergy/AdvReac Type Severity Reaction Status Date / Time No Known Allergies Allergy Verified 05/29/22 20:32 Physical Exam Vitals: Vital Signs Temp Pulse Pulse Resp BP BP Pulse Ox 05/30/22 11:36 84 05/30/22 11:32 98.3 F 77 20 144/75 99 05/30/22 11:18 80 05/30/22 09:08 05/30/22 08:00 98.5 F 86 20 143/63 99 05/30/22 07:48 88 05/30/22 07:30 88 05/30/22 04:43 86 05/30/22 04:29 88 05/30/22 03:25 84 22 114/62 99 05/30/22 01:16 88 05/30/22 01:05 92 05/30/22 01:03 05/29/22 23:10 94 28 H 111/63 99 05/29/22 21:40 98.6 F 88 19 138/65 98 05/29/22 21:26 88 05/29/22 21:08 78 18 156/84 100 05/29/22 19:18 85 05/29/22 19:05 85 05/29/22 18:44 82 05/29/22 18:34 88 13 05/29/22 18:30 05/29/22 18:01 22 05/29/22 17:58 98.2 F 83 26 H 133/73 99 FiO2 05/30/22 11:36 05/30/22 11:32 05/30/22 11:18 40 05/30/22 09:08 40 05/30/22 08:00 05/30/22 07:48 05/30/22 07:30 40 05/30/22 04:43 05/30/22 04:29 40 05/30/22 03:25 40 05/30/22 01:16 05/30/22 01:05 05/30/22 01:03 40 05/29/22 23:10 40 05/29/22 21:40 40 05/29/22 21:26 05/29/22 21:08 40 05/29/22 19:18 05/29/22 19:05 05/29/22 18:44 05/29/22 18:34 05/29/22 18:30 50 05/29/22 18:01 05/29/22 17:58 Intake and Output 05/29/22 05/30/22 05/30/22 22:59 06:59 14:59 Intake Total 118 Balance 118 Intake: Oral 118 Other: Voiding Method Bedside Commode Bedside Commode Bedside Commode # Voids 1 Weight 36.287 kg GENERAL EXAM: Alert, very pleasant, cachectic, 66-year-old female patient, on BiPAP 10/07 on 40% FiO2 alternating with 3 L nasal cannula, fairly, comfortable in no apparent distress. HEAD: Normocephalic. EYES: Normal reaction of pupils, equal size. NOSE: Clear with pink turbinates. THROAT: No erythema or exudates. NECK: No masses, no JVD. CHEST: No chest wall deformity. LUNGS: Equal air entry with bilateral end expiratory wheeze, diminished. CVS: S1 and S2 normal with no audible murmur, regular rhythm. ABDOMEN: No hepatosplenomegaly, normal bowel sounds, no guarding or rigidity. SPINE: No scoliosis or deformity SKIN: No rashes CENTRAL NERVOUS SYSTEM: No focal deficits, tone is normal in all 4 extremities. EXTREMITIES: There is no peripheral edema. No clubbing, no cyanosis. Peripheral pulses are intact. Results - Laboratory Findings CBC and BMP: 05/30/22 05:33 05/30/22 05:33 PT/INR, D-dimer PT 11.5 sec (9.0-12.0) 05/29/22 18:28 INR 1.1 (<1.2) 05/29/22 18:28 Abnormal lab findings: Abnormal Labs 05/29/22 05/29/22 05/30/22 18:28 18:28 05:33 WBC 2.2 L MCV 102.2 H Plt Count 123 L 136 L Lymphocytes # 0.9 L 0.5 L Sodium 135 L Chloride 96 L Carbon Dioxide 39 H Creatinine 0.47 L Glucose 106 H AST 43 H ALT 36 H 05/30/22 05:33 WBC MCV Plt Count Lymphocytes # Sodium Chloride 96 L Carbon Dioxide 39 H Creatinine Glucose 130 H AST ALT - Diagnostic Findings Chest x-ray: image reviewed Assessment and Plan Assessment: 1 Acute exacerbation of severe oxygen dependent, chronic obstructive pulmonary disease 2 Severe chronic obstructive pulmonary disease with an FEV1 value 30% of predicted 3 Chronic hypoxemic respiratory failure maintained on oxygen at 2 L/m per nasal cannula 4 Chronic and ongoing tobacco dependence 5 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 Number of minutes spent on the visit: 20.
[2022-05-30] MEDS: ETODOLAC 400 MG TAB PO SCH ×2 (12:45→16:55)
[2022-05-30 13:08] VITALS: BMI 14.1
[2022-05-30] MEDS: ALPRAZolam 0.5 MG TAB PO PRN (15:13)
--- NOTE | 2022-05-30 16:54 | P.HPIM ---
History of Present Illness H&P Date: 05/30/22 Chief Complaint: Worsening dyspnea This is a 66-year-old female with advanced COPD, chronic respiratory failure wears 2.5 L of O2 nasal cannula at home, osteoarthritis, osteoporosis, anxiety, depression, former nicotine dependence, positive alcohol use, presented to the ER with complaints of worsening dyspnea. Chest x-ray reported no acute pulmonary process;COPD. , Coronavirus influenza type a/type B not detected. Afebrile, WBC 2.2, hemoglobin 13.6, platelets 136, sodium 138, potassium 4.5, bicarb 39, renal function stable. Required BiPAP during the night, currently on 3 L nasal cannula. Review of Systems ROS Statement: Those systems with pertinent positive or pertinent negative responses have been documented in the HPI. ROS Other: All systems not noted in ROS Statement are negative. Past Medical History Past Medical History: COPD, Osteoarthritis (OA) Additional Past Medical History / Comment(s): OA in bilateral hands & osteop orosis in left hip History of Any Multi-Drug Resistant Organisms: None Reported Past Surgical History: Orthopedic Surgery Additional Past Surgical History / Comment(s): 4 sx on each foot; bilateral thumbs replaced; colonoscopy Past Anesthesia/Blood Transfusion Reactions: No Reported Reaction Past Psychological History: Anxiety, Depression Past Alcohol Use History: Rare Past Drug Use History: None Reported - Past Family History Mother Family Medical History: Diabetes Mellitus, Hypertension Additional Family Medical History / Comment(s): knee sx Father Family Medical History: Cancer Additional Family Medical History / Comment(s): CA: kidney, bone, "several cancers" Medications and Allergies Home Medications Medication Instructions Recorded Confirmed Type Albuterol Inhaler [Ventolin Hfa 2 puff INHALATION RT-Q4H PRN 02/14/16 05/29/22 History Inhaler] Atorvastatin [Lipitor] 10 mg PO HS 02/14/16 05/29/22 History Diclofenac Sodium [Voltaren] 75 mg PO BID-W/MEALS 02/14/16 05/29/22 History Gabapentin 800 mg PO TID PRN 02/14/16 05/29/22 History traZODone HCL [Desyrel] 100 mg PO HS PRN 02/14/16 05/29/22 History Dicyclomine [Bentyl] 10 mg PO QID PRN 06/26/18 05/29/22 History Vortioxetine Hydrobromide 20 mg PO DAILY 06/26/18 05/29/22 History [Trintellix] Budesonide-Formot 160-4.5 Mcg 2 puff INHALATION RT-BID 05/29/22 05/29/22 History [Symbicort 160-4.5 Mcg Inhaler] Docusate [Colace] 300 mg PO DAILY 05/29/22 05/29/22 History Ipratropium-Albuterol Nebulize 3 ml INHALATION RT-QID 05/29/22 05/29/22 History [Duoneb 0.5 mg-3 mg/3 ml Soln] Lifitegrast [Xiidra] 1 drop BOTH EYES Q12H 05/29/22 05/29/22 History prednisoLONE ACETATE 1% OPHTH 1 drops BOTH EYES BID 05/29/22 05/29/22 History [Pred Forte 1%] Allergies Allergy/AdvReac Type Severity Reaction Status Date / Time No Known Allergies Allergy Verified 05/29/22 20:32 Physical Exam Vitals: Vital Signs Temp Pulse Pulse Resp BP BP Pulse Ox 05/30/22 11:36 84 05/30/22 11:32 98.3 F 77 20 144/75 99 05/30/22 11:18 80 05/30/22 09:08 05/30/22 08:00 98.5 F 86 20 143/63 99 05/30/22 07:48 88 05/30/22 07:30 88 05/30/22 04:43 86 05/30/22 04:29 88 05/30/22 03:25 84 22 114/62 99 05/30/22 01:16 88 05/30/22 01:05 92 05/30/22 01:03 05/29/22 23:10 94 28 H 111/63 99 05/29/22 21:40 98.6 F 88 19 138/65 98 05/29/22 21:26 88 05/29/22 21:08 78 18 156/84 100 05/29/22 19:18 85 05/29/22 19:05 85 05/29/22 18:44 82 05/29/22 18:34 88 13 05/29/22 18:30 05/29/22 18:01 22 05/29/22 17:58 98.2 F 83 26 H 133/73 99 FiO2 05/30/22 11:36 05/30/22 11:32 05/30/22 11:18 40 05/30/22 09:08 40 05/30/22 08:00 05/30/22 07:48 05/30/22 07:30 40 05/30/22 04:43 05/30/22 04:29 40 05/30/22 03:25 40 05/30/22 01:16 05/30/22 01:05 05/30/22 01:03 40 05/29/22 23:10 40 05/29/22 21:40 40 05/29/22 21:26 05/29/22 21:08 40 05/29/22 19:18 05/29/22 19:05 05/29/22 18:44 05/29/22 18:34 05/29/22 18:30 50 05/29/22 18:01 05/29/22 17:58 Intake and Output 05/29/22 05/30/22 05/30/22 22:59 06:59 14:59 Intake Total 118 Balance 118 Intake: Oral 118 Other: Voiding Method Bedside Commode Bedside Commode Bedside Commode # Voids 1 Weight 36.287 kg 36.287 kg PHYSICAL EXAM: VITAL SIGNS: [As above] GENERAL: Cachectic, sitting up in bed, dyspneic with conversation HEENT: Normocephalic, Conjunctivae normal. eyes normal. NECK: Supple, No JVD. CARDIOVASCULAR: S1, S2 regular. No murmur RESPIRATION: Limited air entry ,Breath sounds diminished in the bases. Expiratory wheezing ABDOMEN: Soft, nontender . No guarding. no masses palpable. No hepatosplenomegaly.Bowel sounds heard. LEGS: No edema. no swelling PSYCHIATRY: Alert and oriented X3, mood and affect normal. NERVOUS SYSTEM: Cranial N 2-12 grossly normal. Moves all 4 limbs. Diffuse weakness,No focal deficits. Strength and sensation grossly intact.. Skin: Warm and dry, no rash Results CBC & Chem 7: 05/30/22 05:33 05/30/22 05:33 Labs: Abnormal Lab Results - Last 24 Hours (Table) 05/29/22 05/29/22 05/30/22 Range/Units 18:28 18:28 05:33 WBC 2.2 L (3.8-10.6) k/uL MCV 102.2 H (80.0-100.0) fL Plt Count 123 L 136 L (150-450) k/uL Lymphocytes # 0.9 L 0.5 L (1.0-4.8) k/uL Sodium 135 L (137-145) mmol/L Chloride 96 L (98-107) mmol/L Carbon Dioxide 39 H (22-30) mmol/L Creatinine 0.47 L (0.52-1.04) mg/dL Glucose 106 H (74-99) mg/dL AST 43 H (14-36) U/L ALT 36 H (4-34) U/L // Range/Units 05:33 WBC (3.8-10.6) k/uL MCV (80.0-100.0) fL Plt Count (150-450) k/uL Lymphocytes # (1.0-4.8) k/uL Sodium (137-145) mmol/L Chloride 96 L (98-107) mmol/L Carbon Dioxide 39 H (22-30) mmol/L Creatinine (0.52-1.04) mg/dL Glucose 130 H (74-99) mg/dL AST (14-36) U/L ALT (4-34) U/L Thrombosis Risk Factor Assmnt - Choose All That Apply Any of the Below Risk Factors Present?: Yes Each Factor Represents 1 point: Abnormal pulmonary function (COPD) Other Risk Factors: No Other congenital or acquired thrombophilia - If yes, enter type in comment: No Thrombosis Risk Factor Assessment Total Risk Factor Score: 1 Thrombosis Risk Factor Assessment Level: Low Risk Assessment and Plan Assessment: Acute COPD exacerbation in a patient with history of severe COPD Chronic hypoxic respiratory failure, wears 2.5 L nasal cannula at home Prior nicotine dependence, reports she has quit smoking Moderate protein malnutrition, anorexia, cachexia secondary to the above, BMI 14.2 Anxiety Depression Osteoarthritis No code, no CPR, no intubation Plan: Continue on current medication regime ,monitoring and symptomatic treatment. Nebulized bronchodilators, IV steroids, Symbicort initiated. BiPAP, prn at bedside. Pulmonary consult in place. Patient requests to be a DO NOT RESUSCITATE. Prognosis guarded given multiple complex medical issues. The impression and plan of care has been dictated as directed. : I performed a history and examination of this patient, discussed the same with the dictator. I agree with the dictator's note ,documented as a scribe. Any ad ditional findings or plans will be noted.
[2022-05-30] MEDS ORDERED: NICOTINE 14MG/24HR PATCH TRANSDERM STA (17:58)
[2022-05-30] MEDS: ATORVASTATIN 10 MG TAB PO SCH (20:37)
[2022-05-30] MEDS: traZODone HCL 100 MG TAB PO PRN (20:38)
[2022-05-31] MEDS: IPRATROPIUM-ALBUTEROL 3 ML NEB INHALATION SCH ×7 (00:18→23:37)
[2022-05-31] MEDS: ETODOLAC 400 MG TAB PO SCH ×2 (06:49→17:10)
[2022-05-31] MEDS: GABAPENTIN 400 MG CAP PO PRN (06:57)
[2022-05-31] MEDS: SYMBICORT 160-4.5 MCG INHALER INHALATION SCH ×2 (08:41→20:02)
[2022-05-31] MEDS: prednisoLONE ACETATE 1% OPHTH DROPS 5 ML BTL BOTH EYES SCH ×2 (08:44→20:33)
[2022-05-31] MEDS: NON FORMULARY DRUG (Lifitegrast [Xiidra] 1 EACH Droperette) BOTH EYES SCH ×2 (08:44→20:32)
[2022-05-31] MEDS: ALPRAZolam 0.5 MG TAB PO PRN ×3 (08:57→23:19)
[2022-05-31] MEDS: methylPREDNISolone SOD SUCCI 40 MG/ML 1 ML VIAL IV SCH ×3 (08:57→23:19)
[2022-05-31] MEDS: HEPARIN SODIUM,PORCINE/PF 5,000 UNIT/0.5 ML SYRINGE SQ SCH ×2 (08:58→20:32)
[2022-05-31] MEDS: DOCUSATE 100 MG CAP PO SCH (08:58)
[2022-05-31] MEDS: VORTIOXETINE HYDROBROMIDE 20 MG TABLET PO SCH (08:58)
--- NOTE | 2022-05-31 11:55 | P.PN ---
Subjective Progress Note Date: 05/31/22 H&P Date: 05/30/22 Chief Complaint: Worsening dyspnea This is a 66-year-old female with advanced COPD, chronic respiratory failure wears 2.5 L of O2 nasal cannula at home, osteoarthritis, osteoporosis, anxiety, depression, former nicotine dependence, positive alcohol use, presented to the ER with complaints of worsening dyspnea. Chest x-ray reported no acute pulmonary process;COPD. , Coronavirus influenza type a/type B not detected. Afebrile, WBC 2.2, hemoglobin 13.6, platelets 136, sodium 138, potassium 4.5, bicarb 39, renal function stable. Required BiPAP during the night, currently on 3 L nasal cannula. 05/31/2022 maintained on nebulized bronchodilators, systemic steroids, Symbicort. Reports she had a better night. BiPAP during the night. Currently on 3 L. Respiratory status about the same. Reports difficulty eating due to her shortness of breath. Afebrile. Objective - Vital Signs Vital signs: Vital Signs Temp 97.7 F 05/31/22 04:00 Pulse 80 05/31/22 08:56 Resp 22 05/31/22 04:00 BP 105/65 05/31/22 04:00 Pulse Ox 100 05/31/22 04:00 FiO2 40 05/31/22 04:21 Intake & Output 05/30/22 05/31/22 05/31/22 18:59 06:59 18:59 Intake Total 118 Balance 118 Weight 36.287 kg Intake: Oral 118 Other: Voiding Method Toilet Bedside Commode # Voids 2 1 # Bowel Movements 1 - Exam PHYSICAL EXAM: VITAL SIGNS: [As above] GENERAL: Cachectic, sitting up in bed, dyspneic with minimal conversation HEENT: Normocephalic, Conjunctivae normal. eyes normal. NECK: Supple, No JVD. CARDIOVASCULAR: S1, S2 regular. No murmur RESPIRATION: Limited air entry ,Breath sounds diminished in the bases. Expiratory wheezing ABDOMEN: Soft, nontender . No guarding. no masses palpable. Bowel sounds heard. LEGS: No edema. no swelling PSYCHIATRY: Alert and oriented X3, mood and affect normal. NERVOUS SYSTEM: Cranial N 2-12 grossly normal.No focal deficits. Strength and sensation grossly intact. Skin: Warm and dry, no rash - Labs CBC & Chem 7: 05/30/22 05:33 07/28/22 05:33 Assessment and Plan Assessment: Acute COPD exacerbation in a patient with history of severe COPD Chronic hypoxic respiratory failure, wears 2.5 L nasal cannula at home Prior nicotine dependence, reports she has quit smoking Moderate protein malnutrition, anorexia, cachexia secondary to the above, BMI 14.2 Anxiety Depression Osteoarthritis No code, no CPR, no intubation Plan: Continue on current medication regime ,monitoring and symptomatic treatment. Aggressive pulmonary toileting with nebulized bronchodilators, IV steroids, Symbicort, prn BiPAP. Dietary consult initiated. Prognosis guarded given multiple complex medical issues. The impression and plan of care has been dictated as directed. : I performed a history and examination of this patient, discussed the same with the dictator. I agree with the dictator's note ,documented as a scribe. Any additional findings or plans will be noted.
--- NOTE | 2022-05-31 12:54 | P.PN ---
Subjective Progress Note Date: 05/31/22 Principal diagnosis: Acute exacerbation of COPD This is a very pleasant 66-year-old female patient who follows with Dr. Salinas as her primary care provider. She has a history of hyperlipidemia, depression, chronic and ongoing tobacco dependence, chronic hypoxemic respiratory failure maintained on oxygen at 2 L/m per nasal cannula. She has severe COPD with an FEV1 percent of predicted. She been maintained on Symbicort, DuoNeb inhalations and albuterol HFA in the outpatient setting. She presented here to the emergency room yesterday with worsening shortness of breath, cough and congestion. Chest tightness and wheezing. Chest x-ray shows no acute pulmonary process. Evidence of COPD. White count 2.2. Hemoglobin 13.6. Platelets 136. Sodium 138. Potassium 4.5. BUN 12. Creatinine 0.60. Bicarb 39. Currently by PCR not detected. Influenza a and B screen negative. She's been initiated on Symbicort, DuoNeb inhalations, IV Solu-Medrol. She is seen today in co nsultation on the regular medical floor. She did require BiPAP support 12/5-40% FiO2. Currently on 3 L nasal cannula. Awake and alert in no acute distress. She remains dyspneic with conversation. Dyspneic with exertion. Reevaluated today on 05/31/22, patient remains about the same, continues to cough, continues to have shortness of breath, not much of improvement so far in the last 24 hours. Patient is maximized on bronchodilators and steroids, and obviously she is not ready to be discharged home. Today I even touched bases with the patient regarding CODE STATUS, and the patient wishes to be DO NOT RESUSCITATE. Objective - Vital Signs Vital signs: Vital Signs Temp 97.7 F 05/31/22 04:00 Pulse 84 05/31/22 12:28 Resp 22 05/31/22 08:00 BP 105/65 05/31/22 04:00 Pulse Ox 100 05/31/22 04:00 FiO2 40 05/31/22 12:29 Intake & Output 05/30/22 05/31/22 05/31/22 18:59 06:59 18:59 Intake Total 118 Balance 118 Weight 36.287 kg Intake: Oral 118 Other: Voiding Method Toilet Bedside Commode Bedside Commode # Voids 2 1 # Bowel Movements 1 - Exam Physical Exam: Revealed a 66-year-old female, frail looking, looks chronically ill, on few liters nasal cannula, noted to be in mild respiratory distress specially with conversation. Head: Atraumatic normocephalic. HEENT:[Neck is supple.] [No neck masses.] [No thyromegaly.] [No JVD.] Chest: [Symmetrical chest expansion extremely diminished breath sound bilaterally no crackles or rhonchi or wheezes Cardiac Exam: [Normal S1 and S2, no S3 gallop, no murmur.] Abdomen: [Soft, nontender, no megaly, no rebound, no guarding, normal bowel sounds.] Extremities: [No clubbing, no edema, no cyanosis.] Neurological Exam: [No focal neurologic deficit.] Alert oriented 3 Psychiatric: Normal mood affect and normal mental status examination. Skin: No rashes. - Labs CBC & Chem 7: 05/30/22 05:33 05/30/22 05:33 Assessment and Plan Assessment: Impression: Acute on chronic hypoxic respiratory failure Acute exacerbation of COPD End-stage COPD, FEV1 of 30% Chronic and ongoing tobacco dependence Degenerative joint disease Severe protein/calorie malnutrition with anorexia and cachexia Recommendation: Continue present treatment plan Continue bronchodilators including DuoNeb Symbicort and IV Solu-Medrol. Counseled regarding smoking cessation Continue BiPAP as needed Not quite ready for discharge planning DO NOT RESUSCITATE CODE STATUS Time with Patient: Less than 30
[2022-05-31] MEDS ORDERED: ALPRAZolam 0.5 MG TAB PO SCH (15:15)
[2022-05-31] MEDS: ATORVASTATIN 10 MG TAB PO SCH (20:31)
[2022-06-01] MEDS: IPRATROPIUM-ALBUTEROL 3 ML NEB INHALATION SCH ×5 (03:34→21:14)
[2022-06-01] MEDS: ETODOLAC 400 MG TAB PO SCH ×2 (06:27→17:14)
[2022-06-01 08:00] LABS: Basophils % (A) 0 %; Eosinophils % (A) 0 %; HCT 43.6 % (34.0-46.0); Lymphocytes # (A) 0.7 k/uL (1.0-4.8); Lymphocytes % (A) 12 %; MCH 32.1 pg (25.0-35.0); MCHC 32.1 g/dL (31.0-37.0); MCV 99.8 fL (80.0-100.0); Mean Platelet Volume 8.9; Monocytes # (A) 0.3 k/uL (0-1.0); Monocytes % (A) 5 %; Neutrophils # (A) 4.7 k/uL (1.3-7.7); Neutrophils % (A) 82 %; Platelet Count 128 k/uL (150-450); RBC 4.37 m/uL (3.80-5.40); RDW 12.1 % (11.5-15.5); WBC 5.8 k/uL (3.8-10.6)
[2022-06-01] MEDS: SYMBICORT 160-4.5 MCG INHALER INHALATION SCH ×2 (08:03→21:14)
[2022-06-01 08:15] LABS: African American GFR (CKD) >90 (>60 ml/min/1.73 sqM); Anion Gap 2 mmol/L; Blood Urea Nitrogen 16 mg/dL (7-17); Calcium 9.4 mg/dL (8.4-10.2); Carbon Dioxide 40 mmol/L (22-30); Chloride 93 mmol/L (98-107); Glucose 106 mg/dL (74-99); Non-African American GFR(CKD) >90 (>60 ml/min/1.73 sqM); Potassium 4.5 mmol/L (3.5-5.1); Sodium 135 mmol/L (137-145)
[2022-06-01] MEDS ORDERED: MORPHINE SULFATE 2 MG/ML SYRINGE IVP STA (09:06)
[2022-06-01] MEDS ORDERED: MORPHINE SULFATE 2 MG/ML SYRINGE IVP PRN (09:07)
[2022-06-01] MEDS: DOCUSATE 100 MG CAP PO SCH (09:20)
[2022-06-01] MEDS: HEPARIN SODIUM,PORCINE/PF 5,000 UNIT/0.5 ML SYRINGE SQ SCH ×2 (09:20→20:06)
[2022-06-01] MEDS: VORTIOXETINE HYDROBROMIDE 20 MG TABLET PO SCH (09:20)
[2022-06-01] MEDS: prednisoLONE ACETATE 1% OPHTH DROPS 5 ML BTL BOTH EYES SCH ×2 (09:20→20:06)
[2022-06-01] MEDS: FAMOTIDINE 20 MG/2 ML VIAL IV SCH ×2 (09:20→20:05)
[2022-06-01] MEDS: methylPREDNISolone SOD SUCCI 40 MG/ML 1 ML VIAL IV SCH ×2 (09:20→17:12)
[2022-06-01] MEDS: MORPHINE SULFATE 2 MG/ML SYRINGE IVP PRN ×2 (09:21→17:12)
[2022-06-01] MEDS: ALPRAZolam 0.5 MG TAB PO PRN ×2 (10:45→20:06)
--- NOTE | 2022-06-01 11:37 | P.PN ---
Subjective this is a pleasant 66 years old female with past medical history of COPD and chronic hypoxic respiratory failure.osteoarthritis. Anxiety and depression. Presents because of respiratory distress secondary to severe advanced COPD with acute exacerbation and worsening hypoxia. Patient has been evaluated by a truck driver supervisor and she's been treated with IV Solu-Medrol and she is requiring BiPAP most of the time. At home she is on 2.5 L oxygen per minute.currently she is on 3 L/m of oxygen but uses BiPAP more frequently Also patient feels depressed and said after her about one month ago. We consulted psychiatrist for this reason. We added Motrin to help her with pain, she is also on Xanax to help with anxiety. WBC normal 5.8, platelets slightly low at 128. BMP is unremarkable. Patient was to be DO NOT RESUSCITATE as she confirms to me today Objective - Vital Signs Vital signs: Vital Signs Temp 97.8 F 06/01/22 04:00 Pulse 78 06/01/22 08:14 Resp 20 06/01/22 04:00 BP 150/86 06/01/22 04:00 Pulse Ox 96 06/01/22 04:00 FiO2 40 05/31/22 23:39 Intake & Output 05/31/22 06/01/22 06/01/22 18:59 06:59 18:59 Intake Total 236 240 Output Total 975 Balance 236 -735 Intake: Oral 236 240 Output: Urine 975 Other: Voiding Method Bedside Commode # Voids 3 1 - Exam -GENERAL: The patient is alert and oriented x3, not in any acute distress. thin built HEENT: Pupils are round and equally reacting to light. EOMI. No scleral icterus. No conjunctival pallor. Normocephalic, atraumatic. No pharyngeal erythema. No thyromegaly. CARDIOVASCULAR: S1 and S2 present. No murmurs, rubs, or gallops. -PULMONARY: Chest is clear to auscultation, no wheezing or crackles. expiratory wheezing and limited air entry on both sides ABDOMEN: Soft, nontender, nondistended, normoactive bowel sounds. No palpable organomegaly. MUSCULOSKELETAL: No joint swelling or deformity. EXTREMITIES: No cyanosis, clubbing, or pedal edema. NEUROLOGICAL: Gross neurological examination did not reveal any focal deficits. SKIN: No rashes. no petechiae. - Labs CBC & Chem 7: 06/01/22 07:12 06/01/22 07:12 Labs: Abnormal Lab Results - Last 24 Hours (Table) 06/01/22 06/01/22 Range/Units 07:12 07:12 Plt Count 128 L (150-450) k/uL Lymphocytes # 0.7 L (1.0-4.8) k/uL Sodium 135 L (137-145) mmol/L Chloride 93 L (98-107) mmol/L Carbon Dioxide 40 H (22-30) mmol/L Glucose 106 H (74-99) mg/dL Assessment and Plan Assessment: acute COPD exacerbation Acute on chronic hypoxic respiratory failure The patient and debridement secondary to loss of about one month ago. Moderate to severe calorie protein malnutrition Mild thrombocytopenia Plan: This is a pleasant 66 years old female who presents with COPD exacerbation Continue with oxygen as needed and BiPAP as needed. Continue with IV Solu-Medrol. Pulmonary team on the case. Consult psychiatry service. Labs and medication were reviewed.. Continue same treatment. Continue with symptomatic treatment. Resume home medication. Monitor lytes and vitals. DVT and GI prophylaxis. Further recommendations as per clinical course of the patient DVT prophylaxis: Subcutaneous heparin GI Prophylaxis: Pepcid PT/OT: Pending Prognosis is guarded
[2022-06-01] MEDS: NON FORMULARY DRUG (Lifitegrast [Xiidra] 1 EACH Droperette) BOTH EYES SCH ×2 (12:40→20:06)
--- NOTE | 2022-06-01 12:52 | P.PN ---
Subjective Progress Note Date: 06/01/22 Principal diagnosis: Acute exacerbation of COPD This is a very pleasant 66-year-old female patient who follows with Dr. Salinas as her primary care provider. She has a history of hyperlipidemia, depression, chronic and ongoing tobacco dependence, chronic hypoxemic respiratory failure maintained on oxygen at 2 L/m per nasal cannula. She has severe COPD with an FEV1 percent of predicted. She been maintained on Symbicort, DuoNeb inhalations and albuterol HFA in the outpatient setting. She presented here to the emergency room yesterday with worsening shortness of breath, cough and congestion. Chest tightness and wheezing. Chest x-ray shows no acute pulmonary process. Evidence of COPD. White count 2.2. Hemoglobin 13.6. Platelets 136. Sodium 138. Potassium 4.5. BUN 12. Creatinine 0.60. Bicarb 39. Currently by PCR not detected. Influenza a and B screen negative. She's been initiated on Symbicort, DuoNeb inhalations, IV Solu-Medrol. She is seen today in co nsultation on the regular medical floor. She did require BiPAP support 12/5-40% FiO2. Currently on 3 L nasal cannula. Awake and alert in no acute distress. She remains dyspneic with conversation. Dyspneic with exertion. Reevaluated today on 05/31/22, patient remains about the same, continues to cough, continues to have shortness of breath, not much of improvement so far in the last 24 hours. Patient is maximized on bronchodilators and steroids, and obviously she is not ready to be discharged home. Today I even touched bases with the patient regarding CODE STATUS, and the patient wishes to be DO NOT RESUSCITATE. Reevaluated today on 06/01/22, patient continues to have intermittent episodes of profound shortness of breath, and as I was walking into the room this morning, patient was basically almost gasping for air, she is on nasal cannula, patient was placed on BiPAP, seem to do much better once she was placed on BiPAP. Patient was seen earlier by admitting physician, and ordered morphine times one. Objective - Vital Signs Vital signs: Vital Signs Temp 98.7 F 06/01/22 08:00 Pulse 104 H 06/01/22 12:00 Resp 16 06/01/22 12:00 BP 147/75 06/01/22 12:00 Pulse Ox 95 06/01/22 12:00 FiO2 40 06/01/22 11:15 Intake & Output 05/31/22 06/01/22 06/01/22 18:59 06:59 18:59 Intake Total 236 240 Output Total 975 200 Balance 236 -735 -200 Intake: Oral 236 240 Output: Urine 975 200 Other: Voiding Method Bedside Commode Bedside Commode # Voids 3 1 1 - Exam Physical Exam: Revealed a 66-year-old female, frail looking, looks chronically ill, noted to be in moderate respiratory distress. Head: Atraumatic normocephalic. HEENT:[Neck is supple.] [No neck masses.] [No thyromegaly.] [No JVD.] Chest: [Symmetrical chest expansion extremely diminished breath sound bilaterally no crackles or rhonchi or wheezes Cardiac Exam: [Normal S1 and S2, no S3 gallop, no murmur.] Abdomen: [Soft, nontender, no megaly, no rebound, no guarding, normal bowel sounds.] Extremities: [No clubbing, no edema, no cyanosis.] Neurological Exam: [No focal neurologic deficit.] Alert oriented 3 Psychiatric: Normal mood affect and normal mental status examination. Skin: No rashes. - Labs CBC & Chem 7: 06/01/22 07:12 06/01/22 07:12 Labs: Abnormal Lab Results - Last 24 Hours (Table) 06/01/22 06/01/22 Range/Units 07:12 07:12 Plt Count 128 L (150-450) k/uL Lymphocytes # 0.7 L (1.0-4.8) k/uL Sodium 135 L (137-145) mmol/L Chloride 93 L (98-107) mmol/L Carbon Dioxide 40 H (22-30) mmol/L Glucose 106 H (74-99) mg/dL Assessment and Plan Assessment: Impression: Acute on chronic hypoxic respiratory failure Acute exacerbation of COPD End-stage COPD, FEV1 of 30% Chronic and ongoing tobacco dependence Degenerative joint disease Severe protein/calorie malnutrition with anorexia and cachexia Recommendation: Use BiPAP as needed. Continue present treatment plan Continue bronchodilators including DuoNeb Symbicort and IV Solu-Medrol. Not quite ready for discharge planning DO NOT RESUSCITATE CODE STATUS Time with Patient: Less than 30
--- NOTE | 2022-06-01 17:02 | P.CN ---
Psychiatric Consult - . Consult date: 06/01/22 Consult:: 06/01/22 16:55 The patient has struggled for some time with depression and anxiety. She was relatively positive about the benefit of treatment to X saying that it helped until her passed recently. She is on a maximum dose of 20 mg. When I interviewed her she was unable to talk she did write on a piece of paper about her passing and the word Trentillex. Of course is hard to assess further treatment Celexa is relieving her anxiety because shortness of breath causes anxiety peers also it is just finished her period time since her passed. She indicated that they had no children and they've been for a long time but we were unable to have any kind of discussion due to her ongoing shortness of breath. She is also not eating anything because of her shortness of breath which would contribute to weakness. She has indicated to others that she would like to go on hospice and just have comfort care until she passes be allowed to pass. She is alert good eye contact pleasant has a sense of humor oriented to person place time and circumstance cooperative. There is no signs of psychosis and she denied any. Diagnosis major depression recurrent nonpsychotic Assessment clearly the depression is understandable if there is a burnout factor to it from a medication staying point we could consider mirtazapine and has low cardiac fact stimulates appetite helps with sleep and is complementary with the treatment to X. The Trintellex is a serotonin reuptake inhibitor and the mirtazapine is a receptor agonist and also works on norepinephrine and dopamine. She definitely needs to have more motivation and drive. At her age of prior to be good to start with 15 mg to see if she tolerates a he can cause excessive sleepiness and too much appetite.
[2022-06-01] MEDS: ATORVASTATIN 10 MG TAB PO SCH (20:06)
[2022-06-01] MEDS ORDERED: MIRTAZAPINE 15 MG TAB PO SCH (21:00)
[2022-06-02] MEDS: methylPREDNISolone SOD SUCCI 40 MG/ML 1 ML VIAL IV SCH ×4 (00:07→23:27)
[2022-06-02] MEDS: IPRATROPIUM-ALBUTEROL 3 ML NEB INHALATION SCH ×7 (00:31→23:41)
[2022-06-02] MEDS: ALPRAZolam 0.5 MG TAB PO PRN ×4 (02:49→23:27)
[2022-06-02] MEDS: ETODOLAC 400 MG TAB PO SCH ×2 (06:35→17:52)
[2022-06-02] MEDS: SYMBICORT 160-4.5 MCG INHALER INHALATION SCH ×2 (07:27→19:16)
[2022-06-02] MEDS: prednisoLONE ACETATE 1% OPHTH DROPS 5 ML BTL BOTH EYES SCH ×2 (08:46→20:02)
[2022-06-02] MEDS: NON FORMULARY DRUG (Lifitegrast [Xiidra] 1 EACH Droperette) BOTH EYES SCH ×2 (08:46→19:57)
[2022-06-02] MEDS: VORTIOXETINE HYDROBROMIDE 20 MG TABLET PO SCH (08:47)
[2022-06-02] MEDS: GABAPENTIN 400 MG CAP PO PRN ×2 (08:47→20:01)
[2022-06-02] MEDS: MORPHINE SULFATE 2 MG/ML SYRINGE IVP PRN ×2 (08:48→14:54)
[2022-06-02] MEDS: HEPARIN SODIUM,PORCINE/PF 5,000 UNIT/0.5 ML SYRINGE SQ SCH ×2 (08:48→19:57)
[2022-06-02] MEDS: FAMOTIDINE 20 MG TAB PO SCH ×2 (08:51→20:01)
[2022-06-02] MEDS: DOCUSATE 100 MG CAP PO SCH (09:52)
--- NOTE | 2022-06-02 12:49 | P.PN ---
Subjective Progress Note Date: 06/02/22 Principal diagnosis: Shortness of breath This is a very pleasant 66-year-old female patient who follows with Dr. Salinas as her primary care provider. She has a history of hyperlipidemia, depression, chronic and ongoing tobacco dependence, chronic hypoxemic respiratory failure ma intained on oxygen at 2 L/m per nasal cannula. She has severe COPD with an FEV1 percent of predicted. She been maintained on Symbicort, DuoNeb inhalations and albuterol HFA in the outpatient setting. She presented here to the emergency room yesterday with worsening shortness of breath, cough and congestion. Chest tightness and wheezing. Chest x-ray shows no acute pulmonary process. Evidence of COPD. White count 2.2. Hemoglobin 13.6. Platelets 136. Sodium 138. Potassium 4.5. BUN 12. Creatinine 0.60. Bicarb 39. Currently by PCR not detected. Influenza a and B screen negative. She's been initiated on Symbicort, DuoNeb inhalations, IV Solu-Medrol. She is seen today in [facility] on the regular medical floor. She did require BiPAP support 12/5-40% FiO2. Currently on 3 L nasal cannula. Awake and alert in no acute distress. She remains dyspneic with conversation. Dyspneic with exertion. Reevaluated today on 05/31/22, patient remains about the same, continues to coug h, continues to have shortness of breath, not much of improvement so far in the last 24 hours. Patient is maximized on bronchodilators and steroids, and obviously she is not ready to be discharged home. Today I even touched bases with the patient regarding CODE STATUS, and the patient wishes to be DO NOT RESUSCITATE. Reevaluated today on 06/01/22, patient continues to have intermittent episodes of profound shortness of breath, and as I was walking into the room this morning, patient was basically almost gasping for air, she is on nasal cannula, patient was placed on BiPAP, seem to do much better once she was placed on BiPAP. Patient was seen earlier by admitting physician, and ordered morphine times one. On 06/02/2022 patient seen in follow-up. Patient is sleeping comfortably in bed, on 3 L of oxygen her pulse ox is 96%, respirations are shallow but nonlabored, we did not wake the patient for physical exam as she was sleeping quite peacefully. She is afebrile. She continues on IV steroids, nebulized bronchodilators, Symbicort, she has been requiring anxiolytics and IV morphine in view of significant anxiety and breathlessness, she has been requiring when necessary BiPAP support. Patient has end-stage COPD. Yesterday patient made it clear she did not want any heroics should her condition continue to deteriorate, and she made a decision for DO NOT RESUSCITATE CODE STATUS. Objective - Vital Signs Vital signs: Vital Signs Temp 98.2 F 06/02/22 08:00 Pulse 78 06/02/22 11:30 Resp 20 06/02/22 08:00 BP 135/89 06/02/22 08:00 Pulse Ox 96 06/02/22 08:00 FiO2 40 06/02/22 07:24 Intake & Output 06/01/22 06/02/22 06/02/22 18:59 06:59 18:59 Intake Total 360 240 Output Total 400 1000 Balance -400 -640 240 Intake: Oral 360 240 Output: Urine 400 1000 Other: Voiding Method Bedside Commode # Voids 1 1 - Exam GENERAL EXAM: Sleeping comfortably in bed, 3 L of oxygen, cachectic-looking 66-year-old female comfortable in no apparent distress. HEAD: Normocephalic/atraumatic. EYES: Normal reaction of pupils, equal size. Conjunctiva pink, sclera white. NOSE: Clear with pink turbinates. THROAT: No erythema or exudates. NECK: No masses, no JVD, no thyroid enlargement, no adenopathy. CHEST: No chest wall deformity. Symmetrical expansion. LUNGS: Diminished air entry with no crackles, wheeze, rhonchi or dullness. CVS: Regular rate and rhythm, normal S1 and S2, no gallops, no murmurs, no rubs ABDOMEN: Soft, nontender. No hepatosplenomegaly, normal bowel sounds, no guarding or rigidity. EXTREMITIES: No clubbing, no edema, no cyanosis, 2+ pulses and upper and lower extremities. MUSCULOSKELETAL: Muscle strength and tone normal. SPINE: No scoliosis or deformity SKIN: No rashes CENTRAL NERVOUS SYSTEM: Sleeping. No focal deficits, tone is normal in all 4 extremities. - Labs CBC & Chem 7: 06/01/22 07:12 06/01/22 07:12 Assessment and Plan Plan: Assessment: #1. Acute on chronic hypoxic respiratory failure related to acute exacerbation of COPD #2. History of end-stage COPD, with FEV1 of 30% chronic hypoxic respiratory failure #3. Chronic and ongoing history of tobacco dependence #4. Degenerative joint disease #5. Severe protein/calorie malnutrition with anorexia and cachexia Plan: Continue current medical treatment BiPAP support as needed, may alternate with nasal cannula Continue anxiolytics and when necessary morphine for anxiety and breathlessness Patient has requested to go home with hospice We'll consult hospice services to make necessary arrangements I have personally seen and examined the patient, performed the documentation and the assessment and plan as written. Number of minutes spent on the visit: [10] Time with Patient: Less than 30
--- NOTE | 2022-06-02 13:38 | P.PN ---
Subjective Progress Note Date: 06/02/22 Principal diagnosis: Major depression recurrent and nonpsychotic Subjective the patient was more talkative today and said she did sleep well she says that the food here is crap and that is why she doesn't eat it might be useful to get the dietitian to come and see and if they can get something that appeals to her more. Objective she was able to take a good nap this afternoon as well as last night good eye contact quick response times. There is no psychosis or the lady is intelligent and when she makes a case for hospice it's well thought out she took care of her mom and her mom was allowed to go over to hospice and her 's dad and she spends all her time short of breath. She was well and taking my Remeron not because she thought it would help her feel any better but because she did want to have better sleep. Assessment: I don't think she needs to be admitted to psych unit against her will she is not actively suicidal she is not psychotic back she is quite oriented and intelligent. I do think the Remeron is a good idea can increase her appetite and help her be calmer into sleep. She does acknowledge anxiety. Plan increase mirtazapine to 30. I'm temporary psychiatrist on for the weekend wecan have the regular psychiatrist evaluate from here however I would not be expecting to go above 30 mg on the mirtazapine and it will take at least 2 weeks for her to work so I think this is something that could be followed by internal medicine. The reason I picked mirtazapine is done him much cardiac fact helps with both appetite and sleep never has any withdrawal and is triple action working on motivation and focus as well as anxiety. Objective - Vital Signs Vital signs: Vital Signs Temp 98.2 F 06/02/22 08:00 Pulse 78 06/02/22 11:30 Resp 20 06/02/22 08:00 BP 135/89 06/02/22 08:00 Pulse Ox 96 06/02/22 08:00 FiO2 40 06/02/22 07:24 Intake & Output 06/01/22 06/02/22 06/02/22 18:59 06:59 18:59 Intake Total 360 240 Output Total 400 1000 Balance -400 -640 240 Intake: Oral 360 240 Output: Urine 400 1000 Other: Voiding Method Bedside Commode # Voids 1 1 - Labs CBC & Chem 7: 06/01/22 07:12 06/01/22 07:12
--- NOTE | 2022-06-02 18:06 | P.PN ---
Subjective this is a pleasant 66 years old female with past medical history of COPD and chronic hypoxic respiratory failure.osteoarthritis. Anxiety and depression. Presents because of respiratory distress secondary to severe advanced COPD with acute exacerbation and worsening hypoxia. Patient has been evaluated by a produce field merchandiser and she's been treated with IV Solu-Medrol and she is requiring BiPAP most of the time. At home she is on 2.5 L oxygen per minute.currently she is on 3 L/m of oxygen but uses BiPAP more frequently Also patient feels depressed and said after her about one month ago. We consulted psychiatrist for this reason. We added Motrin to help her with pain, she is also on Xanax to help with anxiety. WBC normal 5.8, platelets slightly low at 128. BMP is unremarkable. Patient was to be DO NOT RESUSCITATE as she confirms to me today 06/02/2022 patient breathing slightly better than yesterday, she is taking in bed most of the time. She is on 3 L oxygen via nasal cannula saturating 94% with a rate of a breathing about 21. She is using that alternatively with BiPAP. Jane is on Solu-Medrol. Pulmonary team are following her closely. She is DO NOT RESUSCITATE. Psychiatric evaluated the patient and start her on Remeron. Patient reports feeling slightly better today Objective - Vital Signs Vital signs: Vital Signs Temp 98.2 F 06/02/22 08:00 Pulse 78 06/02/22 11:30 Resp 20 06/02/22 08:00 BP 135/89 06/02/22 08:00 Pulse Ox 96 06/02/22 08:00 FiO2 40 06/02/22 07:24 Intake & Output 06/01/22 06/02/22 06/02/22 18:59 06:59 18:59 Intake Total 360 240 Output Total 400 1000 Balance -400 -640 240 Intake: Oral 360 240 Output: Urine 400 1000 Other: Voiding Method Bedside Commode # Voids 1 1 - Exam -GENERAL: The patient is alert and oriented x3, not in any acute distress. thin built HEENT: Pupils are round and equally reacting to light. EOMI. No scleral icterus. No conjunctival pallor. Normocephalic, atraumatic. No pharyngeal erythema. No thyromegaly. CARDIOVASCULAR: S1 and S2 present. No murmurs, rubs, or gallops. -PULMONARY: Chest is clear to auscultation, no wheezing or crackles. expiratory wheezing and limited air entry on both sides ABDOMEN: Soft, nontender, nondistended, normoactive bowel sounds. No palpable organomegaly. MUSCULOSKELETAL: No joint swelling or deformity. EXTREMITIES: No cyanosis, clubbing, or pedal edema. NEUROLOGICAL: Gross neurological examination did not reveal any focal deficits. SKIN: No rashes. no petechiae. - Labs CBC & Chem 7: 06/01/22 07:12 06/01/22 07:12 Assessment and Plan Assessment: acute COPD exacerbation Acute on chronic hypoxic respiratory failure The patient and debridement secondary to loss of about one month ago. Moderate to severe calorie protein malnutrition Mild thrombocytopenia Plan: This is a pleasant 66 years old female who presents with COPD exacerbation Continue with oxygen as needed and BiPAP as needed. Continue with IV Solu-Medrol. Pulmonary team on the case. Psychiatrist input appreciated. Patient is started on Remeron Labs and medication were reviewed.. Continue same treatment. Continue with s ymptomatic treatment. Resume home medication. Monitor lytes and vitals. DVT and GI prophylaxis. Further recommendations as per clinical course of the patient DVT prophylaxis: Subcutaneous heparin GI Prophylaxis: Pepcid PT/OT: Pending Prognosis is guarded
[2022-06-02] MEDS: MIRTAZAPINE 15 MG TAB PO SCH (20:01)
[2022-06-02] MEDS: ATORVASTATIN 10 MG TAB PO SCH (20:01)
[2022-06-03] MEDS: IPRATROPIUM-ALBUTEROL 3 ML NEB INHALATION SCH ×6 (02:24→23:33)
[2022-06-03] MEDS: ETODOLAC 400 MG TAB PO SCH ×2 (06:38→16:41)
[2022-06-03] MEDS: SYMBICORT 160-4.5 MCG INHALER INHALATION SCH ×2 (08:15→20:04)
[2022-06-03] MEDS: NON FORMULARY DRUG (Lifitegrast [Xiidra] 1 EACH Droperette) BOTH EYES SCH ×2 (08:28→20:53)
[2022-06-03] MEDS: DOCUSATE 100 MG CAP PO SCH (08:53)
[2022-06-03] MEDS: ALPRAZolam 0.5 MG TAB PO PRN ×3 (08:53→23:21)
[2022-06-03] MEDS: methylPREDNISolone SOD SUCCI 40 MG/ML 1 ML VIAL IV SCH ×3 (08:53→23:21)
[2022-06-03] MEDS: FAMOTIDINE 20 MG TAB PO SCH ×2 (08:53→20:52)
[2022-06-03] MEDS: HEPARIN SODIUM,PORCINE/PF 5,000 UNIT/0.5 ML SYRINGE SQ SCH ×2 (08:54→20:53)
[2022-06-03] MEDS: prednisoLONE ACETATE 1% OPHTH DROPS 5 ML BTL BOTH EYES SCH ×2 (09:04→20:53)
[2022-06-03] MEDS: VORTIOXETINE HYDROBROMIDE 20 MG TABLET PO SCH (09:04)
--- NOTE | 2022-06-03 12:56 | P.PN ---
Subjective Progress Note Date: 06/03/22 Principal diagnosis: Shortness of breath. Reevaluated today on 05/31/22, patient remains about the same, continues to cough, continues to have shortness of breath, not much of improvement so far in the last 24 hours. Patient is maximized on bronchodilators and steroids, and obviously she is not ready to be discharged home. Today I even touched bases with the patient regarding CODE STATUS, and the patient wishes to be DO NOT RESUSCITATE. Reevaluated today on 06/01/22, patient continues to have intermittent episodes of profound shortness of breath, and as I was walking into the room this morning, patient was basically almost gasping for air, she is on nasal cannula, patient was placed on BiPAP, seem to do much better once she was placed on BiPAP. Patient was seen earlier by admitting physician, and ordered morphine times one. On 06/02/2022 patient seen in follow-up. Patient is sleeping comfortably in bed, on 3 L of oxygen her pulse ox is 96%, respirations are shallow but nonlabored, we did not wake the patient for physical exam as she was sleeping quite peacefully. She is afebrile. She continues on IV steroids, nebulized bronchodilators, Symbicort, she has been requiring anxiolytics and IV morphine in view of significant anxiety and breathlessness, she has been requiring when necessary BiPAP support. Patient has end-stage COPD. Yesterday patient made it clear she did not want any heroics should her condition continue to deteriorate, and she made a decision for DO NOT RESUSCITATE CODE STATUS. Progress note dated 06/03/2022. The patient is currently resting comfortably. She's on 4 L nasal cannula. She's not receiving any IV fluids. The patient is a DO NOT RESUSCITATE patient. The nurse tells me that the patient is being discharged home, with hospice. The patient has no complaints today. No new labs today or for that matter the last 2 days. Objective - Vital Signs Vital signs: Vital Signs Temp 98.4 F 06/03/22 04:00 Pulse 84 06/03/22 12:10 Resp 18 06/03/22 11:42 BP 153/73 06/03/22 11:42 Pulse Ox 98 06/03/22 11:42 FiO2 40 06/02/22 07:24 Intake & Output 06/02/22 06/03/22 06/03/22 18:59 06:59 18:59 Intake Total 420 20 236 Balance 420 20 236 Weight 36.287 kg Intake: IV 20 Invasive Line 1 20 Oral 420 236 Other: Voiding Method Bedside Commode Bedside Commode Bedside Commode # Voids 3 0 - Exam No acute distress, oriented 3. Currently on O2 at 3 L. HEENT examination is grossly unremarkable. Neck supple. Full range of motion. No adenopathy thyromegaly or neck vein distention. Cardiovascular examination reveals regular rhythm rate. S1-S2 normal. No S3 or S4. No discernible murmur noted. Heart rate 84 bpm. Lungs reveal minimal scattered rhonchi. No wheezes or crackles. Breath sounds equal bilaterally. 3 L saturation is 98%. Abdomen soft bowel sounds are heard. No masses or tenderness. Extremities are intact. No cyanosis clubbing or edema. Skin is without rash or lesion. Neurologic examination is brief but nonfocal. - Labs CBC & Chem 7: 06/01/22 07:12 06/01/22 07:12 Assessment and Plan Assessment: Acute on chronic hypoxemic respiratory failure, secondary to COPD exacerbation. History of end-stage COPD, with an FEV1 that is 30% of predicted. Chronic and ongoing tobacco dependence. DJD. Anorexia/cachexia syndrome. Plan: Plan dated 06/03/2022. The patient apparently has agreed to go home with hospice. No additional recommendations are made. The patient is currently on updrafts, and Symbicort, as well as Solu-Medrol which will be converted to prednisone. Prognosis is obviously very poor. Time with Patient: Less than 30
--- NOTE | 2022-06-03 13:05 | P.DS ---
Providers Date of admission: 05/29/22 20:45 Expected date of discharge: 06/03/22 Attending physician: Ad Salinas Consults: 05/29/22 20:45 Consult Physician Routine Consulting Provider: Rolando Ruiz Consult Reason/Comments: copd exacerbation, prn bipap Do you want consulting provider notified?: Yes, Notify in am 06/01/22 09:13 Consult Physician Routine Consulting Provider: Psychiatry - [facility] Psychiatry Consult Reason/Comments: depression after loss of Do you want consulting provider notified?: Yes Primary care physician: Ad Salinas Hospital Course: Final Diagnoses: Acute COPD exacerbation in a patient with history of end-stage COPD Chronic hypoxic respiratory failure, wears 2.5 L nasal cannula at home Prior nicotine dependence, reports she has quit smoking Moderate protein malnutrition, anorexia, cachexia secondary to the above, BMI 14.2 Anxiety Depression Osteoarthritis No code, no CPR, no intubation Hospital course:This is a 66-year-old female with end-stage, COPD, chronic respiratory failure wears 2.5 L of O2 nasal cannula at home, osteoarthritis, osteoporosis, anxiety, depression, former nicotine dependence, positive alcohol use, presented to the ER with complaints of worsening dyspnea. Chest x-ray reported no acute pulmonary process;COPD. , Coronavirus influenza type a/type B not detected. Afebrile, WBC 2.2, hemoglobin 13.6, platelets 136, sodium 138, potassium 4.5, bicarb 39, renal function stable. Required BiPAP during the night, currently on 3 L nasal cannula. 05/31/2022 maintained on nebulized bronchodilators, systemic steroids, Symbicort. Reports she had a better night. BiPAP during the night. Currently on 3 L. Respiratory status about the same. Reports difficulty eating due to her shortness of breath. Afebrile. Over the weekend patient decided that she wanted to proceed home with hospice. Maintained on nebulized bronchodilators, IV steroids, Symbicort, anxiolytics. Significant anxiety with BiPAP. Maintaining O2 sats in the high 90s on 3 L nasal cannula.Patient will be discharged home in a stable condition with guarded prognosis. Case management assisting with [facility] hospice house placement. The impression and plan of care has been dictated as directed. : I performed a history and examination of this patient, discussed the same with the dictator. I agree with the dictator's note ,documented as a scribe. Any additional findings or plans will be noted. Patient Condition at Discharge: Stable Plan - Discharge Summary Discharge Rx Participant: No New Discharge Prescriptions: New predniSONE 10 mg PO DIRECTED #30 tab ALPRAZolam [Xanax] 0.5 mg PO Q8H PRN #9 tab PRN Reason: Anxiety Famotidine [Pepcid] 20 mg PO BID #60 tab Continue Diclofenac Sodium [Voltaren] 75 mg PO BID-W/MEALS Gabapentin 800 mg PO TID PRN PRN Reason: Pain Albuterol Inhaler [Ventolin Hfa Inhaler] 2 puff INHALATION RT-Q4H PRN PRN Reason: Shortness Of Breath traZODone HCL [Desyrel] 100 mg PO HS PRN PRN Reason: SLEEP Atorvastatin [Lipitor] 10 mg PO HS Dicyclomine [Bentyl] 10 mg PO QID PRN PRN Reason: Gi Upset Vortioxetine Hydrobromide [Trintellix] 20 mg PO DAILY prednisoLONE ACETATE 1% OPHTH [Pred Forte 1%] 1 drops BOTH EYES BID Ipratropium-Albuterol Nebulize [Duoneb 0.5 mg-3 mg/3 ml Soln] 3 ml INHALATION RT-QID Budesonide-Formot 160-4.5 Mcg [Symbicort 160-4.5 Mcg Inhaler] 2 puff INHALATION RT-BID Lifitegrast [Xiidra] 1 drop BOTH EYES Q12H Docusate [Colace] 300 mg PO DAILY Discharge Medication List Albuterol Inhaler [Ventolin Hfa Inhaler] 2 puff INHALATION RT-Q4H PRN 02/14/16 [History] Atorvastatin [Lipitor] 10 mg PO HS 02/14/16 [History] Diclofenac Sodium [Voltaren] 75 mg PO BID-W/MEALS 02/14/16 [History] Gabapentin 800 mg PO TID PRN 02/14/16 [History] traZODone HCL [Desyrel] 100 mg PO HS PRN 02/14/16 [History] Dicyclomine [Bentyl] 10 mg PO QID PRN 06/26/18 [History] Vortioxetine Hydrobromide [Trintellix] 20 mg PO DAILY 06/26/18 [History] Budesonide-Formot 160-4.5 Mcg [Symbicort 160-4.5 Mcg Inhaler] 2 puff INHALATION RT-BID 05/29/22 [History] Docusate [Colace] 300 mg PO DAILY 05/29/22 [History] Ipratropium-Albuterol Nebulize [Duoneb 0.5 mg-3 mg/3 ml Soln] 3 ml INHALATION RT-QID 05/29/22 [History] Lifitegrast [Xiidra] 1 drop BOTH EYES Q12H 05/29/22 [History] prednisoLONE ACETATE 1% OPHTH [Pred Forte 1%] 1 drops BOTH EYES BID 05/29/22 [History] ALPRAZolam [Xanax] 0.5 mg PO Q8H PRN #9 tab 06/03/22 [Rx] Famotidine [Pepcid] 20 mg PO BID #60 tab 06/03/22 [Rx] predniSONE 10 mg PO DIRECTED #30 tab 06/03/22 [Rx] Follow up Appointment(s)/Referral(s): Ad Salinas DO [Primary Care Provider] - As Needed [facility] Visiting Nurse, [NON-STAFF] - Patient Instructions/Handouts: Hospice (DC) Discharge Disposition: HOME WITH HOSPICE
[2022-06-03] MEDS: MORPHINE SULFATE 2 MG/ML SYRINGE IVP PRN (13:25)
[2022-06-03] MEDS ORDERED: busPIRone HCl 10 MG TAB PO PRN (13:50)
--- NOTE | 2022-06-03 13:57 | P.PN ---
Progress Note - Text Progress Note Date: 06/03/22 Interval History: Patient was seen today for psychiatric follow-up regarding patient's depression and anxiety. Patient was seen at the bedside today and appeared to have difficulty breathing. She was with her friend at the bedside as well. Patient was reluctant to speak to typewriter ribbon winder and claims that she is not doing well today. She claims that she is struggling with her anxiety and mood. She was irritable at times and reluctant to speak to typewriter ribbon winder and wanted breathing treatment. She has been taking trintellix and xanax however it has not been helping her much. She was unccoperative with most of the interview due to feeling uncomfortable with her breathing. At this time patient denies any suicidal or homical ideations, intent or plan. Patient denies any auditory, visual hallucinations and denies any paranoia or delusions. Mental Status Exam: General Appearance: Patient appears to be frail/thin, older than stated age is alert, difficult to engage with, irritable. in distress secondary to dyspnea. Behavior: Patient is seated in bed, dyspneic. irritable and anxious Speech: Patient's speech is fluent and nonpressured. concrete, demanding. Mood/Affect: Mood is anxious and depressed, affect is congruent and constricted. Suicidality/Homicidality: Patient denies having any suicidal or homicidal ideation intent or plan. Perceptions: Patient denies any visual hallucinations and denies any auditory hallucinations Though content/process: concrete, demanding, no delusions. Memory and concentration: AOX3, grossly intact for the purposes of this session Judgment and insight: Improving mildly Assessment: Major depressive disorder anxiety disorder unspecified end stage COPD Plan: -At this time patient DOES NOT meet criteria for inpatient psychiatric admission. -Delirium precautions recommended with patient including - avoiding use of narcotics and MARINE MACHINIST sedatives, limit anticholinergic medications when possible, frequent re-orientation, minimize use of restraints, open window shades during the day and close them at night -Medications: continue with xanax prn for anxiety, remeron 30 mg qhs for insomnia/appetite/mood, d/c trintellix and replace with lexapro 10 mg daily for mood/anxiety. -continue with medical treatment of underlying comorbities -Will continue to follow along -Please contact with any questions.
[2022-06-03] MEDS: GABAPENTIN 400 MG CAP PO PRN ×2 (15:34→20:59)
[2022-06-03] MEDS ORDERED: NICOTINE 14MG/24HR PATCH TRANSDERM SCH (16:30)
[2022-06-03] MEDS: MIRTAZAPINE 15 MG TAB PO SCH (20:52)
[2022-06-03] MEDS: ATORVASTATIN 10 MG TAB PO SCH (20:52)
[2022-06-03] MEDS ORDERED: ESCITALOPRAM 10 MG TAB PO SCH (21:00)
[2022-06-04] MEDS: IPRATROPIUM-ALBUTEROL 3 ML NEB INHALATION SCH ×2 (03:26→07:32)
[2022-06-04] MEDS: ETODOLAC 400 MG TAB PO SCH (06:31)
[2022-06-04] MEDS: SYMBICORT 160-4.5 MCG INHALER INHALATION SCH (07:32)
[2022-06-04] MEDS: NON FORMULARY DRUG (Lifitegrast [Xiidra] 1 EACH Droperette) BOTH EYES SCH (07:42)
[2022-06-04] MEDS: HEPARIN SODIUM,PORCINE/PF 5,000 UNIT/0.5 ML SYRINGE SQ SCH (07:42)
[2022-06-04] MEDS: MORPHINE SULFATE 2 MG/ML SYRINGE IVP PRN (08:50)
[2022-06-04] MEDS: methylPREDNISolone SOD SUCCI 40 MG/ML 1 ML VIAL IV SCH (08:50)
[2022-06-04] MEDS: DOCUSATE 100 MG CAP PO SCH (08:51)
[2022-06-04] MEDS: ALPRAZolam 0.5 MG TAB PO PRN (08:51)
[2022-06-04] MEDS: FAMOTIDINE 20 MG TAB PO SCH (08:51)
[2022-06-04] MEDS: prednisoLONE ACETATE 1% OPHTH DROPS 5 ML BTL BOTH EYES SCH (08:56)
[2022-06-04 11:11] VITALS: BP 141/81; PULSE 98; RESP 20; TEMP 98
== END 2022-06-04 11:05 | disposition hospice, inpatient (51) | DRG 190 ==
LOC: EC 17:44 → 3SCARD 20:45
PROVIDERS: ADMIT Family Medicine; ATTEND Family Medicine
PROC: 5A09457 Assistance with Respiratory Ventilation, 24-96 Consecutive Hours, Continuous Positive Airway Pressure (ICD-10-PCS; principal; 2022-05-29)
DX: J44.1 Chronic obstructive pulmonary disease with (acute) exacerbation (principal); E43 Unspecified severe protein-calorie malnutrition; J96.21 Acute and chronic respiratory failure with hypoxia; Z68.1 Body mass index [BMI] 19.9 or less, adult; F33.9 Major depressive disorder, recurrent, unspecified; R64 Cachexia; D69.6 Thrombocytopenia, unspecified; E78.5 Hyperlipidemia, unspecified; F17.210 Nicotine dependence, cigarettes, uncomplicated; F41.9 Anxiety disorder, unspecified; M19.041 Primary osteoarthritis, right hand; M19.042 Primary osteoarthritis, left hand; M81.0 Age-related osteoporosis without current pathological fracture; Z20.822 Contact with and (suspected) exposure to COVID-19; Z63.4 Disappearance and death of family member; Z66 Do not resuscitate; Z51.5 Encounter for palliative care; Z79.51 Long term (current) use of inhaled steroids; Z28.21 Immunization not carried out because of patient refusal; Z79.52 Long term (current) use of systemic steroids; Z71.3 Dietary counseling and surveillance; Z79.899 Other long term (current) drug therapy; Z80.51 Family history of malignant neoplasm of kidney; Z82.49 Family history of ischemic heart disease and other diseases of the circulatory system; Z83.3 Family history of diabetes mellitus; Z99.81 Dependence on supplemental oxygen
CPT/HCPCS: 36415; 71045; 80048; 80053; 83735; 85025; 85610; 85730; 87502; 87635; 93005; 94640; 94660; 99285